=== PATIENT | male | born 1950 | race African-American/Black ===

== ENCOUNTER 2016-05-30 08:58 | Inpatient (IN) | payer MEDICARE ==
[2016-05-30] VITALS (7 sets, daily range): BP systolic 125–140; BP diastolic 59–82
[~2016-05-30] VITALS: Ht 167.6 cm; Wt 113.9 kg
[~2016-05-30 08:58] MED LIST: ALBU2.5V13; ALLO100T PO; AMLO5TAB88 PO; COR6 PO; DIGO125T82 PO; FAMO20TA8 PO; FLUT1DIS3; FURO40TA5 PO; LISI-604 PO; RIVA20TA PO; SITA100T6 PO; SPIR25TA4 PO
[2016-05-30] MEDS ORDERED: IPRATROPIUM BROMIDE (0.02%) 0.5MG/2.5ML NEB HHN STA (09:34)
[2016-05-30] MEDS ORDERED: ALBUTEROL (0.083%) 2.5MG/3ML NEB HHN STA (09:34)
[2016-05-30] MEDS ORDERED: FUROSEMIDE 40MG/4ML VIAL IVP ONE (09:45)
[2016-05-30 09:57] LABS: HEMOGLOBIN. 11.4 g/dL (14.0-18.0); MEAN CORPUSCULAR HEMOGLOBIN 29.4 pg (28.0-32.0); MEAN CORPUSCULAR HGB CONC 31.6 g/dL (31.0-37.0); MEAN CORPUSCULAR VOLUME 92.8 fL (80.0-94.0); MEAN PLATELET VOLUME 10.3 fl (7.4-10.4); PLATELET 145 x1000/uL (130-400); RED BLOOD CELL COUNT 3.87 mill/uL (4.7-6.1); RED CELL DISTRIBUTION WIDTH 16.5 % (11.6-14.6); WHITE BLOOD COUNT 6.2 x1000/uL (4.5-11.0)
[2016-05-30 09:58] LABS: DIFFERENTIAL COMMENT 1
[2016-05-30 10:00] LABS: CLARITY URINE CLEAR (CLEAR); COLOR URINE YELLOW (YELLOW); GLUCOSE URINE NEGATIVE (NEGATIVE); KETONES URINE NEGATIVE (NEGATIVE); LEUKOCYTE ESTERASE URINE NEGATIVE (NEGATIVE); NITRITE URINE NEGATIVE (NEGATIVE); OCCULT BLOOD URINE 1+ (NEGATIVE); PH URINE 5.5 (4.5-8.0); PROTEIN URINE 3+ (NEGATIVE); SPECIFIC GRAVITY URINE 1.014 (1.005-1.030); UROBILINOGEN URINE 0.2 E.U./dL (0.2-1.0)
[2016-05-30 10:11] LABS: SQUAMOUS EPITHELIAL CELL URINE RARE /lpf (RARE/1+)
[2016-05-30 10:12] LABS: BACTERIA URINE TRACE; MUCUS URINE TRACE /lpf (NONE/TRACE); RBC URINE 0-2 /hpf (0-2); WBC URINE 0-2 /hpf (0-2)
[2016-05-30 10:16] LABS: ALANINE AMINOTRANSFERASE 11 IU/L (13-61); ALBUMIN 3.4 g/dL (3.4-5.0); ANION GAP 14; CALCIUM 8.7 mg/dL (8.5-10.1); CARBON DIOXIDE 30 mEq/L (21-32); CHLORIDE 104 mEq/L (98-107); INDEX HEMOLYSI 1 (1-3); INDEX ICTERIC 1 (1-4); INDEX LIPEMIC 1 (1-3); NT PRO B-TYPE NATRIURETIC PEP 11368 pg/mL (5-125); UREA NITROGEN BLOOD 49 mg/dL (7-21); eGFR 25 mL/min (>60)
[2016-05-30 10:29] LABS: DIGOXIN 1.5 ng/mL (0.9-2.0)
[2016-05-30] MEDS ORDERED: ASPIRIN 81MG TABLET PO ONE (10:30)
[2016-05-30 10:44] LABS: ANISOCYTOSIS 1+; PLATELET ESTIMATE NORMAL
[2016-05-30 10:54] LABS: INR 1.2; PARTIAL THROMBOPLASTIN TIME 30.2 sec (24.0-34.0); PROTHROMBIN TIME 12.2 sec
[2016-05-30] MEDS ORDERED: DOCUSATE SODIUM 100MG CAPSULE PO PRN (11:15)
[2016-05-30] MEDS ORDERED: ONDANSETRON HCL 4MG/2ML VIAL IV PRN (11:15)
[2016-05-30] MEDS ORDERED: ACETAMINOPHEN 325MG TABLET PO PRN (11:15)
[2016-05-30] MEDS ORDERED: IPRATROPIUM/ALBUTEROL 0.5-3(2.5)MG/3ML NEB INH PRN (11:15)
[2016-05-30] MEDS ORDERED: DEXTROSE 50% WATER 50ML SYRINGE IV PRN (13:30)
[2016-05-30] MEDS: OMEPRAZOLE 20MG CAPSULE EXTENDED RELEASE PO SCH (13:54)
[2016-05-30] MEDS: RIVAROXABAN 15 MG TABLET PO SCH (16:28)
[2016-05-30] MEDS: BLOOD SUGAR DIAGNOSTIC STRIP TEST SCH ×2 (16:45→20:45)
[2016-05-30] MEDS ORDERED: LISINOPRIL 20MG TABLET PO SCH (17:00)
[2016-05-30] MEDS: INSULIN LISPRO 100 UNITS/ML SUBCUT SCH ×2 (17:19→20:46)
[2016-05-30] MEDS ORDERED: RIVAROXABAN 20 MG TABLET PO SCH (18:00)
[2016-05-30] MEDS: METHYLPREDNISOLONE SOD SUCC 40 MG/ML VIAL IV SCH (20:28)
[2016-05-30] MEDS: CARVEDILOL 6.25 MG TABLET PO SCH (20:28)
[2016-05-30] MEDS: LISINOPRIL 10MG TABLET PO SCH (20:28)
[2016-05-30] MEDS ORDERED: ZOLPIDEM TARTRATE 5MG TABLET PO PRN (21:00)
[2016-05-31] VITALS (12 sets, daily range): BP systolic 109–140; BP diastolic 53–97
[2016-05-31] MEDS: IPRATROPIUM/ALBUTEROL 0.5-3(2.5)MG/3ML NEB HHN SCH ×3 (00:14→13:30)
[2016-05-31] MEDS: OMEPRAZOLE 20MG CAPSULE EXTENDED RELEASE PO SCH ×2 (06:34→08:50)
[2016-05-31 06:57] LABS: BASOPHILS % 0.5 % (0.0-2.0); EOSINOPHILS % 0.4 % (0.0-5.0); HEMATOCRIT. 34.9 % (42.0-52.0); HEMOGLOBIN. 11.1 g/dL (14.0-18.0); LYMPHOCYTES % 11.4 % (20.0-50.0); MEAN CORPUSCULAR HEMOGLOBIN 29.5 pg (28.0-32.0); MEAN CORPUSCULAR HGB CONC 31.8 g/dL (31.0-37.0); MEAN CORPUSCULAR VOLUME 92.6 fL (80.0-94.0); MEAN PLATELET VOLUME 10.3 fl (7.4-10.4); MONOCYTES % 2.3 % (2.0-8.0); NEUTROPHILS % 85.4 % (40.0-76.0); PLATELET 138 x1000/uL (130-400); RED BLOOD CELL COUNT 3.76 mill/uL (4.7-6.1); RED CELL DISTRIBUTION WIDTH 16.2 % (11.6-14.6); WHITE BLOOD COUNT 5.8 x1000/uL (4.5-11.0)
[2016-05-31] MEDS: INSULIN LISPRO 100 UNITS/ML SUBCUT SCH ×4 (08:00→21:00)
[2016-05-31 08:07] LABS: CALCIUM 8.6 mg/dL (8.5-10.1); DIGOXIN 1.3 ng/mL (0.9-2.0); MAGNESIUM 1.9 mg/dL (1.8-2.4)
[2016-05-31] MEDS: BLOOD SUGAR DIAGNOSTIC STRIP TEST SCH ×4 (08:25→21:18)
[2016-05-31] MEDS: BUDESONIDE 0.5MG/2ML NEB HHN SCH (08:25)
[2016-05-31] MEDS: ALLOPURINOL 100 MG TABLET PO SCH (08:47)
[2016-05-31] MEDS: METHYLPREDNISOLONE SOD SUCC 40 MG/ML VIAL IV SCH (08:47)
[2016-05-31] MEDS: DIGOXIN 125MCG TABLET PO SCH (08:47)
[2016-05-31] MEDS: CARVEDILOL 6.25 MG TABLET PO SCH ×2 (08:49→21:18)
[2016-05-31] MEDS: LISINOPRIL 10MG TABLET PO SCH ×2 (08:49→21:17)
[2016-05-31] MEDS ORDERED: SPIRONOLACTONE 25MG TABLET PO SCH (09:00)
[2016-05-31] MEDS ORDERED: CARVEDILOL 6.25 MG TABLET PO SCH (09:00)
[2016-05-31] MEDS ORDERED: FUROSEMIDE 40MG/4ML VIAL IV SCH (09:00)
[2016-05-31] MEDS: RIVAROXABAN 15 MG TABLET PO SCH (18:39)
[2016-05-31] MEDS: FUROSEMIDE 40MG/4ML VIAL IV SCH (18:39)
[2016-06-01] VITALS (11 sets, daily range): BP systolic 92–140; BP diastolic 24–102
[2016-06-01] MEDS: BUDESONIDE 0.5MG/2ML NEB HHN SCH ×3 (02:28→21:14)
[2016-06-01] MEDS: IPRATROPIUM/ALBUTEROL 0.5-3(2.5)MG/3ML NEB HHN SCH ×5 (02:28→21:15)
[2016-06-01] MEDS: FUROSEMIDE 40MG/4ML VIAL IV SCH ×2 (06:19→16:34)
[2016-06-01 06:56] LABS: BASOPHILS % 0.2 % (0.0-2.0); EOSINOPHILS % 0.1 % (0.0-5.0); HEMOGLOBIN. 10.2 g/dL (14.0-18.0); MEAN CORPUSCULAR HGB CONC 31.8 g/dL (31.0-37.0); MEAN PLATELET VOLUME 10.4 fl (7.4-10.4); MONOCYTES % 6.6 % (2.0-8.0); NEUTROPHILS % 84.1 % (40.0-76.0); PLATELET 138 x1000/uL (130-400); RED BLOOD CELL COUNT 3.51 mill/uL (4.7-6.1); RED CELL DISTRIBUTION WIDTH 16.1 % (11.6-14.6); WHITE BLOOD COUNT 11.1 x1000/uL (4.5-11.0)
[2016-06-01] MEDS: BLOOD SUGAR DIAGNOSTIC STRIP TEST SCH ×4 (07:55→20:49)
[2016-06-01] MEDS: INSULIN LISPRO 100 UNITS/ML SUBCUT SCH ×4 (07:56→20:52)
[2016-06-01] MEDS: ALLOPURINOL 100 MG TABLET PO SCH (08:01)
[2016-06-01] MEDS: CARVEDILOL 6.25 MG TABLET PO SCH ×2 (08:02→20:49)
[2016-06-01] MEDS: FAMOTIDINE 20MG TABLET PO SCH (08:02)
[2016-06-01] MEDS: LISINOPRIL 10MG TABLET PO SCH ×2 (08:02→20:49)
[2016-06-01] MEDS: DIGOXIN 125MCG TABLET PO SCH (08:02)
[2016-06-01 09:28] LABS: MAGNESIUM 1.8 mg/dL (1.8-2.4)
[2016-06-01 11:05] LABS: CREATININE URINE (RAW) 65.1 mg/dl; CREATININE URINE 24 HR 846.3 mg/24hr (800-2000)
[2016-06-01] MEDS: RIVAROXABAN 15 MG TABLET PO SCH (16:34)
[2016-06-02] VITALS (12 sets, daily range): BP systolic 108–151; BP diastolic 61–96
[2016-06-02] MEDS: IPRATROPIUM/ALBUTEROL 0.5-3(2.5)MG/3ML NEB HHN SCH ×4 (01:59→20:14)
[2016-06-02] MEDS: FUROSEMIDE 40MG/4ML VIAL IV SCH ×2 (06:36→18:42)
[2016-06-02 07:06] LABS: BASOPHILS % 0.9 % (0.0-2.0); EOSINOPHILS % 5.3 % (0.0-5.0); HEMOGLOBIN. 11.2 g/dL (14.0-18.0); LYMPHOCYTES % 21.5 % (20.0-50.0); MEAN CORPUSCULAR HEMOGLOBIN 29.2 pg (28.0-32.0); MEAN CORPUSCULAR HGB CONC 31.9 g/dL (31.0-37.0); MEAN CORPUSCULAR VOLUME 91.7 fL (80.0-94.0); MEAN PLATELET VOLUME 10.2 fl (7.4-10.4); NEUTROPHILS % 62.3 % (40.0-76.0); PLATELET 139 x1000/uL (130-400); RED BLOOD CELL COUNT 3.82 mill/uL (4.7-6.1); RED CELL DISTRIBUTION WIDTH 16.1 % (11.6-14.6); WHITE BLOOD COUNT 9.3 x1000/uL (4.5-11.0)
[2016-06-02 07:45] LABS: CALCIUM 8.2 mg/dL (8.5-10.1)
[2016-06-02] MEDS: INSULIN LISPRO 100 UNITS/ML SUBCUT SCH ×4 (07:49→21:00)
[2016-06-02] MEDS: BLOOD SUGAR DIAGNOSTIC STRIP TEST SCH ×4 (07:49→21:04)
[2016-06-02] MEDS: LISINOPRIL 10MG TABLET PO SCH ×2 (09:11→21:04)
[2016-06-02] MEDS: FAMOTIDINE 20MG TABLET PO SCH (09:11)
[2016-06-02] MEDS: ALLOPURINOL 100 MG TABLET PO SCH (09:11)
[2016-06-02] MEDS: DIGOXIN 125MCG TABLET PO SCH (09:11)
[2016-06-02] MEDS: CARVEDILOL 6.25 MG TABLET PO SCH ×2 (09:11→21:04)
[2016-06-02] MEDS: BUDESONIDE 0.5MG/2ML NEB HHN SCH ×2 (11:32→20:14)
[2016-06-02] MEDS: RIVAROXABAN 15 MG TABLET PO SCH (18:42)
[2016-06-03] VITALS (12 sets, daily range): BP systolic 114–136; BP diastolic 57–110
[2016-06-03] MEDS: IPRATROPIUM/ALBUTEROL 0.5-3(2.5)MG/3ML NEB HHN SCH ×4 (02:25→19:50)
[2016-06-03] MEDS: FUROSEMIDE 40MG/4ML VIAL IV SCH ×2 (06:21→18:19)
[2016-06-03 06:32] LABS: BASOPHILS % 0.9 % (0.0-2.0); EOSINOPHILS % 12.5 % (0.0-5.0); HEMATOCRIT. 32.9 % (42.0-52.0); HEMOGLOBIN. 10.5 g/dL (14.0-18.0); LYMPHOCYTES % 23.2 % (20.0-50.0); MEAN CORPUSCULAR HEMOGLOBIN 29.3 pg (28.0-32.0); MEAN CORPUSCULAR HGB CONC 31.9 g/dL (31.0-37.0); MEAN CORPUSCULAR VOLUME 91.9 fL (80.0-94.0); MONOCYTES % 12.3 % (2.0-8.0); NEUTROPHILS % 51.1 % (40.0-76.0); PLATELET 141 x1000/uL (130-400); RED BLOOD CELL COUNT 3.58 mill/uL (4.7-6.1); RED CELL DISTRIBUTION WIDTH 16.3 % (11.6-14.6); WHITE BLOOD COUNT 7.3 x1000/uL (4.5-11.0)
[2016-06-03 06:38] LABS: CALCIUM 8.1 mg/dL (8.5-10.1)
[2016-06-03] MEDS: INSULIN LISPRO 100 UNITS/ML SUBCUT SCH ×4 (08:00→21:00)
[2016-06-03] MEDS: LISINOPRIL 10MG TABLET PO SCH ×2 (08:41→21:26)
[2016-06-03] MEDS: FAMOTIDINE 20MG TABLET PO SCH (08:41)
[2016-06-03] MEDS: DIGOXIN 125MCG TABLET PO SCH (08:42)
[2016-06-03] MEDS: ALLOPURINOL 100 MG TABLET PO SCH (08:42)
[2016-06-03] MEDS: CARVEDILOL 6.25 MG TABLET PO SCH ×2 (08:42→21:00)
[2016-06-03] MEDS: BLOOD SUGAR DIAGNOSTIC STRIP TEST SCH ×4 (08:45→21:00)
[2016-06-03] MEDS: BUDESONIDE 0.5MG/2ML NEB HHN SCH (10:14)
[2016-06-03] MEDS: RIVAROXABAN 15 MG TABLET PO SCH (18:19)
[2016-06-04] VITALS (12 sets, daily range): BP systolic 113–167; BP diastolic 64–122
[2016-06-04] MEDS: IPRATROPIUM/ALBUTEROL 0.5-3(2.5)MG/3ML NEB HHN SCH ×4 (01:14→21:38)
[2016-06-04 05:55] LABS: CALCIUM 8.4 mg/dL (8.5-10.1)
[2016-06-04 05:56] LABS: HEMATOCRIT. 34.5 % (42.0-52.0); HEMOGLOBIN. 10.9 g/dL (14.0-18.0); MEAN CORPUSCULAR HEMOGLOBIN 29.2 pg (28.0-32.0); MEAN CORPUSCULAR HGB CONC 31.6 g/dL (31.0-37.0); MEAN CORPUSCULAR VOLUME 92.4 fL (80.0-94.0); PLATELET 148 x1000/uL (130-400); RED BLOOD CELL COUNT 3.74 mill/uL (4.7-6.1); RED CELL DISTRIBUTION WIDTH 15.8 % (11.6-14.6); WHITE BLOOD COUNT 8.4 x1000/uL (4.5-11.0)
[2016-06-04] MEDS: FUROSEMIDE 40MG/4ML VIAL IV SCH ×2 (06:30→16:18)
[2016-06-04 06:51] LABS: DIFFERENTIAL COMMENT 1
[2016-06-04] MEDS: BLOOD SUGAR DIAGNOSTIC STRIP TEST SCH ×4 (07:30→21:00)
[2016-06-04] MEDS: INSULIN LISPRO 100 UNITS/ML SUBCUT SCH ×4 (08:00→21:00)
[2016-06-04] MEDS: ALLOPURINOL 100 MG TABLET PO SCH (08:55)
[2016-06-04] MEDS: DIGOXIN 125MCG TABLET PO SCH (08:55)
[2016-06-04] MEDS: LISINOPRIL 10MG TABLET PO SCH ×2 (08:56→21:02)
[2016-06-04] MEDS: FAMOTIDINE 20MG TABLET PO SCH (08:56)
[2016-06-04] MEDS: CARVEDILOL 6.25 MG TABLET PO SCH ×2 (08:56→21:02)
[2016-06-04] MEDS: RIVAROXABAN 15 MG TABLET PO SCH (16:18)
[2016-06-04 17:33] LABS: PLATELET ESTIMATE NORMAL
[2016-06-04 17:34] LABS: ANISOCYTOSIS 1+; HYPOCHROMASIA 1+
[2016-06-05] VITALS (7 sets, daily range): BP systolic 116–151; BP diastolic 73–81
[2016-06-05] MEDS: IPRATROPIUM/ALBUTEROL 0.5-3(2.5)MG/3ML NEB HHN SCH ×2 (01:25→08:33)
[2016-06-05 06:43] LABS: CALCIUM 8.4 mg/dL (8.5-10.1); MAGNESIUM 1.9 mg/dL (1.8-2.4); PHOSPHORUS 3.7 mg/dL (2.5-4.9)
[2016-06-05 06:59] LABS: BASOPHILS % 0.8 % (0.0-2.0); EOSINOPHILS % 13.2 % (0.0-5.0); HEMATOCRIT. 33.4 % (42.0-52.0); HEMOGLOBIN. 10.9 g/dL (14.0-18.0); MEAN CORPUSCULAR HEMOGLOBIN 29.6 pg (28.0-32.0); MEAN CORPUSCULAR HGB CONC 32.5 g/dL (31.0-37.0); MEAN CORPUSCULAR VOLUME 91.3 fL (80.0-94.0); MEAN PLATELET VOLUME 10.4 fl (7.4-10.4); MONOCYTES % 11.4 % (2.0-8.0); NEUTROPHILS % 54.6 % (40.0-76.0); PLATELET 147 x1000/uL (130-400); RED BLOOD CELL COUNT 3.66 mill/uL (4.7-6.1); RED CELL DISTRIBUTION WIDTH 16.3 % (11.6-14.6); WHITE BLOOD COUNT 7.2 x1000/uL (4.5-11.0)
[2016-06-05] MEDS: BLOOD SUGAR DIAGNOSTIC STRIP TEST SCH ×2 (07:30→12:30)
[2016-06-05] MEDS: FUROSEMIDE 40MG/4ML VIAL IV SCH (07:38)
[2016-06-05] MEDS: INSULIN LISPRO 100 UNITS/ML SUBCUT SCH ×2 (08:00→13:00)
[2016-06-05] MEDS: DIGOXIN 125MCG TABLET PO SCH (09:00)
[2016-06-05] MEDS: CARVEDILOL 6.25 MG TABLET PO SCH (09:00)
[2016-06-05] MEDS: FAMOTIDINE 20MG TABLET PO SCH (09:32)
[2016-06-05] MEDS: ALLOPURINOL 100 MG TABLET PO SCH (09:34)
[2016-06-05] MEDS: LISINOPRIL 10MG TABLET PO SCH (09:35)
== END 2016-06-05 01:00 | disposition home or self-care (01) | DRG 291 ==
LOC: ER 10:05 → 5EST 10:57
PROVIDERS: ADMIT Family Medicine Adult Medicine; ATTEND Family Medicine Adult Medicine
DX: I13.0 Hypertensive heart and chronic kidney disease with heart failure and stage 1 through stage 4 chronic kidney disease, or unspecified chronic kidney disease (principal); J96.00 Acute respiratory failure, unspecified whether with hypoxia or hypercapnia; I50.43 Acute on chronic combined systolic (congestive) and diastolic (congestive) heart failure; J44.1 Chronic obstructive pulmonary disease with (acute) exacerbation; N17.9 Acute kidney failure, unspecified; Z68.41 Body mass index [BMI] 40.0-44.9, adult; I42.9 Cardiomyopathy, unspecified; N18.9 Chronic kidney disease, unspecified; E66.9 Obesity, unspecified; Z99.81 Dependence on supplemental oxygen; E11.22 Type 2 diabetes mellitus with diabetic chronic kidney disease; I25.10 Atherosclerotic heart disease of native coronary artery without angina pectoris; I27.2 Other secondary pulmonary hypertension; I27.81 Cor pulmonale (chronic); I34.0 Nonrheumatic mitral (valve) insufficiency; I48.2 Chronic atrial fibrillation; D64.9 Anemia, unspecified; M10.9 Gout, unspecified; Z79.01 Long term (current) use of anticoagulants; Z82.49 Family history of ischemic heart disease and other diseases of the circulatory system; Z86.73 Personal history of transient ischemic attack (TIA), and cerebral infarction without residual deficits; Z95.5 Presence of coronary angioplasty implant and graft; Z95.810 Presence of automatic (implantable) cardiac defibrillator; Z79.899 Other long term (current) drug therapy; Z28.21 Immunization not carried out because of patient refusal
CPT/HCPCS: 36415; 71010; 80048; 80053; 80162; 81001; 82570; 82962; 83605; 83735; 83880; 83970; 84100; 84484; 85025; 85610; 85730; 87040; 87086; 93005; 94640; 94664; 96374; 97110; 97116; 97162; 97166; 97530; 99291; J1815; J1940; J2920; J7611; J7620; J7626

== ENCOUNTER 2016-08-30 11:20 | Emergency (ER) | payer MEDICARE ==
[~2016-08-30] VITALS: Ht 175.3 cm; Wt 106.0 kg
[~2016-08-30 11:20] MED LIST changes: -AMLO5TAB88 PO; -FAMO20TA8 PO; -SITA100T6 PO
[2016-08-30 11:52] LABS: HEMATOCRIT. 32.9 % (42.0-52.0); HEMOGLOBIN. 10.7 g/dL (14.0-18.0); MEAN CORPUSCULAR VOLUME 92.1 fL (80.0-94.0); MEAN PLATELET VOLUME 9.7 fl (7.4-10.4); PLATELET 112 x1000/uL (130-400); RED BLOOD CELL COUNT 3.58 mill/uL (4.7-6.1); RED CELL DISTRIBUTION WIDTH 17.1 % (11.6-14.6)
[2016-08-30 12:12] LABS: PLATELET ESTIMATE DECREASED
[2016-08-30 12:17] LABS: TROPONIN I 0.83 ng/mL (0.00-0.04)
[2016-08-30 12:23] LABS: DIGOXIN 1.2 ng/mL (0.9-2.0)
[2016-08-30 12:36] LABS: INR 1.2; PROTHROMBIN TIME 12.7 sec
[2016-08-30 13:30] LABS: *AMPHETAMINES SCREEN URINE NEGATIVE (NEGATIVE); *BARBITURATES SCREEN URINE NEGATIVE (NEGATIVE); *BENZODIAZEPINES SCREEN URINE NEGATIVE (NEGATIVE); *COCAINE SCREEN URINE NEGATIVE (NEGATIVE); CANNABINOID URINE SCREEN NEGATIVE (NEGATIVE); METHADONE URINE SCREEN NEGATIVE (NEGATIVE); OPIATES URINE SCREEN NEGATIVE (NEGATIVE); PHENCYCLIDINE URINE SCREEN NEGATIVE (NEGATIVE)
[2016-08-30 14:32] VITALS: BP 117/75
== END 2016-08-30 14:48 | disposition home or self-care (01) ==
LOC: ER 11:55
DX: N18.9 Chronic kidney disease, unspecified (principal); I50.9 Heart failure, unspecified; R31.9 Hematuria, unspecified; R79.89 Other specified abnormal findings of blood chemistry; J44.9 Chronic obstructive pulmonary disease, unspecified; M79.89 Other specified soft tissue disorders; I48.91 Unspecified atrial fibrillation; Z86.73 Personal history of transient ischemic attack (TIA), and cerebral infarction without residual deficits; Z79.01 Long term (current) use of anticoagulants
CPT/HCPCS: 36415; 71010; 80048; 80162; 80305; 83880; 84484; 85025; 85610; 93005; 99285

== ENCOUNTER 2016-09-20 16:18 | Inpatient (IN) | payer MEDICARE ==
[~2016-09-20] VITALS: Ht 170.2 cm; Wt 118.4 kg
[2016-09-20] MEDS ORDERED: IPRATROPIUM BROMIDE (0.02%) 0.5MG/2.5ML NEB HHN STA (17:41)
[2016-09-20] MEDS ORDERED: ALBUTEROL (0.083%) 2.5MG/3ML NEB HHN STA (17:41)
[2016-09-20] MEDS ORDERED: METHYLPREDNISOLONE SOD SUCC 125 MG/2 ML VIAL IV STA (17:41)
[2016-09-20] MEDS ORDERED: NITROGLYCERIN OINT 1GM/INCH UDPKT TD STA (17:41)
[2016-09-20] MEDS ORDERED: FUROSEMIDE 40MG/4ML VIAL IV STA (17:41)
[2016-09-20 18:35] LABS: CHLORIDE 107 mEq/L (98-107); INR 1.2; PROTHROMBIN TIME 12.2 sec
[2016-09-20 18:36] LABS: CARBON DIOXIDE 25 mEq/L (21-32)
[2016-09-20 18:38] LABS: BASOPHILS % 1.3 % (0.0-2.0); EOSINOPHILS % 11.9 % (0.0-5.0); HEMATOCRIT. 33.1 % (42.0-52.0); HEMOGLOBIN. 10.7 g/dL (14.0-18.0); LYMPHOCYTES % 16.8 % (20.0-50.0); MEAN CORPUSCULAR VOLUME 93.3 fL (80.0-94.0); MEAN PLATELET VOLUME 9.9 fl (7.4-10.4); MONOCYTES % 10.7 % (2.0-8.0); NEUTROPHILS % 59.3 % (40.0-76.0); PLATELET 130 x1000/uL (130-400); RED BLOOD CELL COUNT 3.55 mill/uL (4.7-6.1); RED CELL DISTRIBUTION WIDTH 17.9 % (11.6-14.6)
[2016-09-20 18:44] LABS: CREATINE KINASE 94 IU/L (39-308)
[2016-09-20] MEDS ORDERED: ASPIRIN 325MG TABLET PO ONE (19:00)
[2016-09-20 21:40] VITALS: BP 115/76
[2016-09-20] MEDS ORDERED: ACETAMINOPHEN 325MG TABLET PO PRN (23:00)
[2016-09-20] MEDS ORDERED: DEXTROSE 50% WATER 50ML SYRINGE IV PRN (23:00)
[2016-09-21] VITALS: BP 128/87
[2016-09-21] MEDS: IPRATROPIUM/ALBUTEROL 0.5-3(2.5)MG/3ML NEB HHN SCH ×6 (01:32→20:43)
[2016-09-21 04:57] VITALS: BP 132/79
[2016-09-21 06:39] LABS: BASOPHILS % 0.4 % (0.0-2.0); EOSINOPHILS % 0.2 % (0.0-5.0); HEMATOCRIT. 32.6 % (42.0-52.0); HEMOGLOBIN. 10.5 g/dL (14.0-18.0); MEAN PLATELET VOLUME 10.1 fl (7.4-10.4); MONOCYTES % 0.9 % (2.0-8.0); NEUTROPHILS % 87.5 % (40.0-76.0); PLATELET 121 x1000/uL (130-400); RED CELL DISTRIBUTION WIDTH 17.4 % (11.6-14.6)
[2016-09-21] MEDS: BLOOD SUGAR DIAGNOSTIC STRIP TEST SCH ×4 (07:20→21:00)
[2016-09-21] MEDS: INSULIN LISPRO 100 UNITS/ML SUBCUT SCH ×4 (07:50→21:00)
[2016-09-21 08:00] VITALS: BP 117/79
[2016-09-21 08:02] LABS: TROPONIN I 0.93 ng/mL (0.00-0.04)
[2016-09-21] MEDS: LISINOPRIL 20MG TABLET PO SCH ×2 (08:45→17:33)
[2016-09-21] MEDS: ALLOPURINOL 100 MG TABLET PO SCH (08:45)
[2016-09-21] MEDS: FUROSEMIDE 40MG/4ML VIAL IVP SCH ×2 (08:45→22:00)
[2016-09-21] MEDS: SPIRONOLACTONE 25MG TABLET PO SCH (08:45)
[2016-09-21] MEDS: DIGOXIN 125MCG TABLET PO SCH (08:45)
[2016-09-21] MEDS: CARVEDILOL 12.5MG TABLET PO SCH ×2 (08:46→21:00)
[2016-09-21] MEDS ORDERED: CARVEDILOL 6.25 MG TABLET PO SCH (09:00)
[2016-09-21 12:00] VITALS: BP 94/62
[2016-09-21 16:00] VITALS: BP 106/54
[2016-09-21] MEDS: RIVAROXABAN 15 MG TABLET PO SCH (17:32)
[2016-09-21 20:28] VITALS: BP 98/58
[2016-09-22] VITALS: BP 119/71
[2016-09-22] MEDS: IPRATROPIUM/ALBUTEROL 0.5-3(2.5)MG/3ML NEB HHN SCH ×6 (00:29→20:26)
[2016-09-22 04:00] VITALS: BP 113/73
[2016-09-22 07:09] LABS: BASOPHILS % 0.4 % (0.0-2.0); EOSINOPHILS % 1.5 % (0.0-5.0); HEMATOCRIT. 31.3 % (42.0-52.0); HEMOGLOBIN. 10.2 g/dL (14.0-18.0); LYMPHOCYTES % 13.4 % (20.0-50.0); MEAN CORPUSCULAR HEMOGLOBIN 30.1 pg (28.0-32.0); MEAN CORPUSCULAR VOLUME 92.3 fL (80.0-94.0); MEAN PLATELET VOLUME 9.7 fl (7.4-10.4); MONOCYTES % 10.2 % (2.0-8.0); NEUTROPHILS % 74.5 % (40.0-76.0); PLATELET 129 x1000/uL (130-400); RED BLOOD CELL COUNT 3.39 mill/uL (4.7-6.1); RED CELL DISTRIBUTION WIDTH 17.3 % (11.6-14.6)
[2016-09-22] MEDS: BLOOD SUGAR DIAGNOSTIC STRIP TEST SCH ×4 (07:20→20:46)
[2016-09-22] MEDS: INSULIN LISPRO 100 UNITS/ML SUBCUT SCH ×4 (07:50→20:47)
[2016-09-22 07:52] VITALS: BP 119/73
[2016-09-22 08:25] LABS: CARBON DIOXIDE 22 mEq/L (21-32); CHLORIDE 103 mEq/L (98-107)
[2016-09-22] MEDS: FUROSEMIDE 40MG/4ML VIAL IVP SCH ×2 (08:26→20:46)
[2016-09-22] MEDS: ALLOPURINOL 100 MG TABLET PO SCH (08:26)
[2016-09-22] MEDS: DIGOXIN 125MCG TABLET PO SCH (08:26)
[2016-09-22] MEDS: SPIRONOLACTONE 25MG TABLET PO SCH (08:26)
[2016-09-22] MEDS: CARVEDILOL 12.5MG TABLET PO SCH ×2 (08:27→20:46)
[2016-09-22] MEDS: LISINOPRIL 20MG TABLET PO SCH ×2 (08:27→17:14)
[2016-09-22 08:56] LABS: TROPONIN I 0.84 ng/mL (0.00-0.04)
[2016-09-22] MEDS ORDERED: SODIUM POLYSTYRENE SULFONATE 15 G/60 ML BOT PO SCH (10:00)
[2016-09-22 11:09] LABS: BG CARBOXYHEMOGLOBIN 0.1 % (0.5-1.5); BG DEOXYHEMOGLOBIN 2.9 % (0.0-5.0); BG FRACTION INSPIRED OXYGEN 28; BG HCO3 ACT 20.6 mmol/L (22.0-26.0); BG OXYGEN SATURATION 97.1 % (92.0-98.5); BG PCO2 40.3 mmHg (35.0-45.0); BG PH 7.327 (7.350-7.450); BG PO2 106.5 mmHg (75.0-100.0); BG SAMPLE SITE RIGHT RADIAL; BG TOTAL HEMOGLOBIN 11.5 g/dL (12.0-18.0); BG VENT MODE NASAL CANNULA
[2016-09-22 11:53] VITALS: BP 121/76
[2016-09-22] MEDS ORDERED: CALCITRIOL 0.25MCG CAPSULE PO SCH (13:00)
[2016-09-22 16:00] VITALS: BP 159/63
[2016-09-22 16:18] LABS: CLARITY URINE CLEAR (CLEAR); COLOR URINE YELLOW (YELLOW); GLUCOSE URINE NEGATIVE (NEGATIVE); KETONES URINE NEGATIVE (NEGATIVE); LEUKOCYTE ESTERASE URINE NEGATIVE (NEGATIVE); NITRITE URINE NEGATIVE (NEGATIVE); OCCULT BLOOD URINE TRACE (NEGATIVE); PROTEIN URINE TRACE (NEGATIVE); SPECIFIC GRAVITY URINE 1.008 (1.005-1.030); UROBILINOGEN URINE 0.2 E.U./dL (0.2-1.0)
[2016-09-22] MEDS: RIVAROXABAN 15 MG TABLET PO SCH (17:14)
[2016-09-22 20:19] VITALS: BP 117/72
[2016-09-23] VITALS: BP 107/76
[2016-09-23] MEDS: IPRATROPIUM/ALBUTEROL 0.5-3(2.5)MG/3ML NEB HHN SCH ×6 (00:20→20:36)
[2016-09-23 04:00] VITALS: BP 101/62
[2016-09-23 07:13] LABS: BASOPHILS % 1.2 % (0.0-2.0); HEMATOCRIT. 31.4 % (42.0-52.0); HEMOGLOBIN. 10.2 g/dL (14.0-18.0); LYMPHOCYTES % 19.9 % (20.0-50.0); MEAN CORPUSCULAR VOLUME 92.3 fL (80.0-94.0); MEAN PLATELET VOLUME 10.1 fl (7.4-10.4); MONOCYTES % 10.5 % (2.0-8.0); NEUTROPHILS % 59.4 % (40.0-76.0); PLATELET 132 x1000/uL (130-400); RED CELL DISTRIBUTION WIDTH 17.3 % (11.6-14.6)
[2016-09-23] MEDS: BLOOD SUGAR DIAGNOSTIC STRIP TEST SCH ×4 (07:31→21:36)
[2016-09-23] MEDS: INSULIN LISPRO 100 UNITS/ML SUBCUT SCH ×4 (07:40→21:00)
[2016-09-23 08:00] VITALS: BP 129/89
[2016-09-23 08:27] LABS: PHOSPHORUS 4.3 mg/dL (2.5-4.9)
[2016-09-23] MEDS: FUROSEMIDE 40MG/4ML VIAL IVP SCH ×2 (08:36→21:36)
[2016-09-23] MEDS: SPIRONOLACTONE 25MG TABLET PO SCH (08:36)
[2016-09-23] MEDS: DIGOXIN 125MCG TABLET PO SCH (08:37)
[2016-09-23] MEDS: LISINOPRIL 20MG TABLET PO SCH ×2 (08:37→17:18)
[2016-09-23] MEDS: ALLOPURINOL 100 MG TABLET PO SCH (08:37)
[2016-09-23] MEDS: CALCITRIOL 0.25MCG CAPSULE PO SCH (08:37)
[2016-09-23] MEDS: CARVEDILOL 12.5MG TABLET PO SCH ×2 (08:37→21:35)
[2016-09-23 12:00] VITALS: BP 139/86
[2016-09-23 16:00] VITALS: BP 147/98
[2016-09-23] MEDS: RIVAROXABAN 15 MG TABLET PO SCH (17:17)
[2016-09-23 20:00] VITALS: BP 116/61
[2016-09-24] VITALS: BP 116/73
[2016-09-24] MEDS: IPRATROPIUM/ALBUTEROL 0.5-3(2.5)MG/3ML NEB HHN SCH ×4 (00:01→12:24)
[2016-09-24 06:35] LABS: BASOPHILS % 1.1 % (0.0-2.0); EOSINOPHILS % 12.3 % (0.0-5.0); HEMATOCRIT. 32.8 % (42.0-52.0); HEMOGLOBIN. 10.6 g/dL (14.0-18.0); LYMPHOCYTES % 18.2 % (20.0-50.0); MEAN CORPUSCULAR HEMOGLOBIN 30.1 pg (28.0-32.0); MEAN CORPUSCULAR VOLUME 92.7 fL (80.0-94.0); MEAN PLATELET VOLUME 10.2 fl (7.4-10.4); MONOCYTES % 13.3 % (2.0-8.0); NEUTROPHILS % 55.1 % (40.0-76.0); PLATELET 122 x1000/uL (130-400); RED BLOOD CELL COUNT 3.54 mill/uL (4.7-6.1); RED CELL DISTRIBUTION WIDTH 17.3 % (11.6-14.6)
[2016-09-24] MEDS: INSULIN LISPRO 100 UNITS/ML SUBCUT SCH ×3 (06:49→17:08)
[2016-09-24] MEDS: BLOOD SUGAR DIAGNOSTIC STRIP TEST SCH ×3 (07:20→16:34)
[2016-09-24 07:30] VITALS: BP 120/74
[2016-09-24] MEDS: FUROSEMIDE 40MG/4ML VIAL IVP SCH (08:49)
[2016-09-24] MEDS: CALCITRIOL 0.25MCG CAPSULE PO SCH (08:50)
[2016-09-24] MEDS: ALLOPURINOL 100 MG TABLET PO SCH (08:50)
[2016-09-24] MEDS: SPIRONOLACTONE 25MG TABLET PO SCH (08:50)
[2016-09-24] MEDS: CARVEDILOL 12.5MG TABLET PO SCH (08:50)
[2016-09-24] MEDS: DIGOXIN 125MCG TABLET PO SCH (08:51)
[2016-09-24] MEDS: LISINOPRIL 20MG TABLET PO SCH ×2 (08:51→16:37)
[2016-09-24 11:29] VITALS: BP 119/79
[2016-09-24] MEDS ORDERED: BUDESONIDE 0.5MG/2ML NEB HHN SCH (14:00)
[2016-09-24] MEDS ORDERED: IPRATROPIUM/ALBUTEROL 0.5-3(2.5)MG/3ML NEB HHN PRN (14:00)
[2016-09-24 15:31] VITALS: BP 123/71
[2016-09-24] MEDS: RIVAROXABAN 15 MG TABLET PO SCH (16:37)
[2016-09-24 17:11] VITALS: BP 123/73
[2016-09-24] MEDS ORDERED: IPRATROPIUM/ALBUTEROL 0.5-3(2.5)MG/3ML NEB HHN SCH (18:00)
== END 2016-09-24 20:00 | disposition home or self-care (01) | DRG 291 ==
LOC: ER 17:37 → 6WST 18:59 → EDBEDREQTM 19:03 → EDBEDREQ 19:03 → ENRESERV 19:50
PROVIDERS: ADMIT Specialist; ATTEND Specialist
DX: I13.2 Hypertensive heart and chronic kidney disease with heart failure and with stage 5 chronic kidney disease, or end stage renal disease (principal); N18.6 End stage renal disease; I50.43 Acute on chronic combined systolic (congestive) and diastolic (congestive) heart failure; J96.20 Acute and chronic respiratory failure, unspecified whether with hypoxia or hypercapnia; J44.1 Chronic obstructive pulmonary disease with (acute) exacerbation; N17.9 Acute kidney failure, unspecified; Z68.41 Body mass index [BMI] 40.0-44.9, adult; D63.8 Anemia in other chronic diseases classified elsewhere; E11.22 Type 2 diabetes mellitus with diabetic chronic kidney disease; I48.2 Chronic atrial fibrillation; I25.5 Ischemic cardiomyopathy; E66.01 Morbid (severe) obesity due to excess calories; E87.5 Hyperkalemia; I25.10 Atherosclerotic heart disease of native coronary artery without angina pectoris; I27.81 Cor pulmonale (chronic); I34.0 Nonrheumatic mitral (valve) insufficiency; I89.0 Lymphedema, not elsewhere classified; M10.9 Gout, unspecified; Z79.01 Long term (current) use of anticoagulants; Z91.19 Patient's noncompliance with other medical treatment and regimen; Z86.73 Personal history of transient ischemic attack (TIA), and cerebral infarction without residual deficits; Z95.810 Presence of automatic (implantable) cardiac defibrillator; Z99.81 Dependence on supplemental oxygen; Z95.5 Presence of coronary angioplasty implant and graft
CPT/HCPCS: 36415; 36600; 71010; 80048; 80053; 81001; 82375; 82550; 82805; 82962; 83605; 83690; 83735; 83880; 83970; 84100; 84153; 84484; 85025; 85379; 85610; 87040; 93005; 93970; 94640; 96374; 96375; 99285; J1940; J2930; J7030; J7611; J7620; J7626

== ENCOUNTER 2016-10-11 15:30 | Inpatient (IN) | payer MEDICARE ==
[~2016-10-11] VITALS: Ht 170.2 cm; Wt 113.9 kg
[2016-10-11] MEDS ORDERED: ACETAMINOPHEN 325MG TABLET PO PRN (17:30)
[2016-10-11] MEDS ORDERED: DEXTROSE 50% WATER 50ML SYRINGE IV PRN (17:30)
[2016-10-11] MEDS ORDERED: IPRATROPIUM/ALBUTEROL 0.5-3(2.5)MG/3ML NEB HHN PRN (17:30)
[2016-10-11] MEDS ORDERED: ONDANSETRON HCL 4MG/2ML VIAL IV PRN (17:30)
[2016-10-11] MEDS ORDERED: MAGNESIUM/ALUMINUM HYDROXIDE/SIMETHICONE 30ML UDC PO PRN (17:30)
[2016-10-11] MEDS ORDERED: DOCUSATE SODIUM 100MG CAPSULE PO PRN (17:30)
[2016-10-11 17:40] VITALS: BP 128/85
[2016-10-11 20:00] VITALS: BP 131/74
[2016-10-11] MEDS: INSULIN LISPRO 100 UNITS/ML SUBCUT SCH (21:00)
[2016-10-11] MEDS: IPRATROPIUM/ALBUTEROL 0.5-3(2.5)MG/3ML NEB HHN SCH (21:13)
[2016-10-11] MEDS: BUDESONIDE 0.5MG/2ML NEB HHN SCH (21:13)
[2016-10-11] MEDS: CARVEDILOL 6.25 MG TABLET PO SCH (21:49)
[2016-10-11] MEDS: BLOOD SUGAR DIAGNOSTIC STRIP TEST SCH (21:55)
[2016-10-12] MEDS: IPRATROPIUM/ALBUTEROL 0.5-3(2.5)MG/3ML NEB HHN SCH ×4 (01:24→20:37)
[2016-10-12 04:00] VITALS: BP 100/64
[2016-10-12] MEDS: BLOOD SUGAR DIAGNOSTIC STRIP TEST SCH ×4 (07:17→20:52)
[2016-10-12 08:00] VITALS: BP 94/61
[2016-10-12 08:01] LABS: BASOPHILS % 1.2 % (0.0-2.0); EOSINOPHILS % 11.3 % (0.0-5.0); HEMATOCRIT. 30.8 % (42.0-52.0); HEMOGLOBIN. 10.3 g/dL (14.0-18.0); LYMPHOCYTES % 24.2 % (20.0-50.0); MEAN CORPUSCULAR HEMOGLOBIN 31.1 pg (28.0-32.0); MEAN CORPUSCULAR VOLUME 92.9 fL (80.0-94.0); MEAN PLATELET VOLUME 11.3 fl (7.4-10.4); MONOCYTES % 13.1 % (2.0-8.0); NEUTROPHILS % 50.2 % (40.0-76.0); PLATELET 67 x1000/uL (130-400); RED BLOOD CELL COUNT 3.31 mill/uL (4.7-6.1); RED CELL DISTRIBUTION WIDTH 16.8 % (11.6-14.6)
[2016-10-12] MEDS: BUDESONIDE 0.5MG/2ML NEB HHN SCH ×2 (08:17→20:37)
[2016-10-12] MEDS: CARVEDILOL 6.25 MG TABLET PO SCH ×2 (08:25→20:51)
[2016-10-12] MEDS: INSULIN LISPRO 100 UNITS/ML SUBCUT SCH ×4 (08:27→20:51)
[2016-10-12] MEDS: FAMOTIDINE 20MG TABLET PO SCH (08:32)
[2016-10-12 08:34] LABS: CARBON DIOXIDE 20 mEq/L (21-32); CHLORIDE 105 mEq/L (98-107); PREALBUMIN 19.5 mg/dL (20.0-40.0)
[2016-10-12] MEDS: LACTULOSE 20G/30ML UDC PO SCH ×3 (09:34→16:42)
[2016-10-12] MEDS: DOCUSATE SODIUM 100MG CAPSULE PO SCH (17:29)
[2016-10-12 20:00] VITALS: BP 108/71
[2016-10-12] MEDS: POLYETHYLENE GLYCOL 3350 (17GM) 1 DOSE PACK PO SCH (20:51)
[2016-10-13] MEDS: IPRATROPIUM/ALBUTEROL 0.5-3(2.5)MG/3ML NEB HHN SCH ×4 (01:27→21:00)
[2016-10-13] MEDS: BLOOD SUGAR DIAGNOSTIC STRIP TEST SCH ×4 (06:23→20:49)
[2016-10-13 07:01] LABS: BASOPHILS % 1.4 % (0.0-2.0); EOSINOPHILS % 10.1 % (0.0-5.0); HEMATOCRIT. 29.7 % (42.0-52.0); HEMOGLOBIN. 9.7 g/dL (14.0-18.0); LYMPHOCYTES % 22.7 % (20.0-50.0); MEAN CORPUSCULAR VOLUME 91.8 fL (80.0-94.0); MEAN PLATELET VOLUME 9.7 fl (7.4-10.4); MONOCYTES % 13.2 % (2.0-8.0); NEUTROPHILS % 52.6 % (40.0-76.0); PLATELET 77 x1000/uL (130-400); RED BLOOD CELL COUNT 3.24 mill/uL (4.7-6.1); RED CELL DISTRIBUTION WIDTH 16.5 % (11.6-14.6)
[2016-10-13] MEDS: INSULIN LISPRO 100 UNITS/ML SUBCUT SCH ×4 (07:03→20:49)
[2016-10-13 07:23] VITALS: BP 99/73
[2016-10-13 07:59] LABS: PHOSPHORUS 3.6 mg/dL (2.5-4.9)
[2016-10-13] MEDS: BUDESONIDE 0.5MG/2ML NEB HHN SCH ×2 (08:06→21:01)
[2016-10-13 08:15] LABS: FOLIC ACID (FOLATE) SERUM 6.8 ng/mL (>5.38)
[2016-10-13] MEDS: FAMOTIDINE 20MG TABLET PO SCH (08:37)
[2016-10-13] MEDS: DOCUSATE SODIUM 100MG CAPSULE PO SCH ×2 (08:37→15:54)
[2016-10-13] MEDS: CARVEDILOL 6.25 MG TABLET PO SCH ×2 (08:41→20:48)
[2016-10-13 09:30] LABS: PROSTRATE SPECIFIC AG TOTAL 1.65 ng/mL (0.0-4.0)
[2016-10-13] MEDS: LACTULOSE 20G/30ML UDC PO SCH ×2 (10:00→13:07)
[2016-10-13] MEDS ORDERED: ENOXAPARIN 100MG/ML SYR SUBCUT SCH (15:00)
[2016-10-13] MEDS: CYANOCOBALAMIN 1000MCG/ML VIAL IM SCH (15:54)
[2016-10-13 20:00] VITALS: BP 134/71
[2016-10-13] MEDS: POLYETHYLENE GLYCOL 3350 (17GM) 1 DOSE PACK PO SCH (20:49)
[2016-10-14] MEDS: IPRATROPIUM/ALBUTEROL 0.5-3(2.5)MG/3ML NEB HHN SCH ×3 (02:11→14:51)
[2016-10-14] MEDS: BLOOD SUGAR DIAGNOSTIC STRIP TEST SCH ×4 (06:36→21:00)
[2016-10-14] MEDS: INSULIN LISPRO 100 UNITS/ML SUBCUT SCH ×4 (07:04→21:00)
[2016-10-14] MEDS: BUDESONIDE 0.5MG/2ML NEB HHN SCH (07:21)
[2016-10-14 08:00] VITALS: BP 115/64
[2016-10-14] MEDS: FAMOTIDINE 20MG TABLET PO SCH (08:19)
[2016-10-14] MEDS: CYANOCOBALAMIN 1000MCG/ML VIAL IM SCH (08:19)
[2016-10-14] MEDS: DOCUSATE SODIUM 100MG CAPSULE PO SCH ×2 (08:20→17:00)
[2016-10-14] MEDS: CARVEDILOL 6.25 MG TABLET PO SCH ×2 (08:20→21:00)
[2016-10-14 13:52] LABS: BASOPHILS % 1.3 % (0.0-2.0); EOSINOPHILS % 12.4 % (0.0-5.0); HEMATOCRIT. 31.1 % (42.0-52.0); HEMOGLOBIN. 10.2 g/dL (14.0-18.0); LYMPHOCYTES % 19.4 % (20.0-50.0); MEAN CORPUSCULAR HEMOGLOBIN 30.2 pg (28.0-32.0); MEAN CORPUSCULAR VOLUME 91.8 fL (80.0-94.0); MEAN PLATELET VOLUME 9.7 fl (7.4-10.4); MONOCYTES % 12.5 % (2.0-8.0); NEUTROPHILS % 54.4 % (40.0-76.0); PLATELET 102 x1000/uL (130-400); RED BLOOD CELL COUNT 3.39 mill/uL (4.7-6.1); RED CELL DISTRIBUTION WIDTH 16.8 % (11.6-14.6)
[2016-10-14 14:20] LABS: CARBON DIOXIDE 21 mEq/L (21-32); CHLORIDE 104 mEq/L (98-107)
[2016-10-14 20:10] VITALS: BP 105/70
[2016-10-14] MEDS: POLYETHYLENE GLYCOL 3350 (17GM) 1 DOSE PACK PO SCH (21:00)
[2016-10-15] VITALS (8 sets, daily range): BP systolic 103–121; BP diastolic 55–87
[2016-10-15 07:13] LABS: BASOPHILS % 1.3 % (0.0-2.0); EOSINOPHILS % 11.7 % (0.0-5.0); HEMATOCRIT. 32.8 % (42.0-52.0); HEMOGLOBIN. 10.8 g/dL (14.0-18.0); MEAN CORPUSCULAR HEMOGLOBIN 30.3 pg (28.0-32.0); MEAN CORPUSCULAR VOLUME 91.8 fL (80.0-94.0); MEAN PLATELET VOLUME 10.6 fl (7.4-10.4); MONOCYTES % 13.3 % (2.0-8.0); NEUTROPHILS % 51.7 % (40.0-76.0); PLATELET 100 x1000/uL (130-400); RED BLOOD CELL COUNT 3.57 mill/uL (4.7-6.1); RED CELL DISTRIBUTION WIDTH 16.8 % (11.6-14.6)
[2016-10-15 07:36] LABS: PHOSPHORUS 4.8 mg/dL (2.5-4.9)
[2016-10-15] MEDS: IPRATROPIUM/ALBUTEROL 0.5-3(2.5)MG/3ML NEB HHN SCH ×3 (07:53→20:54)
[2016-10-15] MEDS: CYANOCOBALAMIN 1000MCG/ML VIAL IM SCH (08:33)
[2016-10-15] MEDS: CARVEDILOL 6.25 MG TABLET PO SCH ×2 (08:36→21:44)
[2016-10-15] MEDS: DOCUSATE SODIUM 100MG CAPSULE PO SCH ×2 (08:36→17:46)
[2016-10-15] MEDS: INSULIN LISPRO 100 UNITS/ML SUBCUT SCH ×4 (08:40→21:00)
[2016-10-15] MEDS: FAMOTIDINE 20MG TABLET PO SCH (08:40)
[2016-10-15] MEDS ORDERED: LIDOCAINE HCL 1% 20ML VIAL (Pyxis) INJ ONE (10:28)
[2016-10-15] MEDS ORDERED: SODIUM BICARBONATE 4% (2.4MEQ) 5ML VIAL IV ONE (10:29)
[2016-10-15] MEDS ORDERED: FENTANYL CITRATE/PF 50MCG/ML 2ML VIAL ONE (10:43)
[2016-10-15] MEDS ORDERED: CEFAZOLIN 1000MG PREMIX 50 ML IV ONE ×2 (10:43→11:00)
[2016-10-15] MEDS ORDERED: FENTANYL CITRATE/PF 50MCG/ML 2ML VIAL IV ONE (11:00)
[2016-10-15] MEDS: BLOOD SUGAR DIAGNOSTIC STRIP TEST SCH ×3 (11:15→21:46)
[2016-10-15] MEDS ORDERED: ENOXAPARIN 100MG/ML SYR SUBCUT SCH (18:00)
[2016-10-15] MEDS: POLYETHYLENE GLYCOL 3350 (17GM) 1 DOSE PACK PO SCH (21:00)
[2016-10-16] MEDS: IPRATROPIUM/ALBUTEROL 0.5-3(2.5)MG/3ML NEB HHN SCH ×3 (01:15→20:46)
[2016-10-16] MEDS: BLOOD SUGAR DIAGNOSTIC STRIP TEST SCH ×4 (05:42→21:17)
[2016-10-16 06:38] LABS: HEMATOCRIT. 31.5 % (42.0-52.0); HEMOGLOBIN. 10.3 g/dL (14.0-18.0); MEAN CORPUSCULAR HEMOGLOBIN 30.2 pg (28.0-32.0); MEAN CORPUSCULAR VOLUME 92.5 fL (80.0-94.0); MEAN PLATELET VOLUME 10.4 fl (7.4-10.4); PLATELET 98 x1000/uL (130-400); RED CELL DISTRIBUTION WIDTH 16.8 % (11.6-14.6)
[2016-10-16 08:00] VITALS: BP 103/64
[2016-10-16] MEDS: INSULIN LISPRO 100 UNITS/ML SUBCUT SCH ×4 (09:00→21:00)
[2016-10-16] MEDS: CARVEDILOL 6.25 MG TABLET PO SCH ×2 (09:00→21:17)
[2016-10-16] MEDS: FAMOTIDINE 20MG TABLET PO SCH (09:14)
[2016-10-16] MEDS: DOCUSATE SODIUM 100MG CAPSULE PO SCH ×2 (09:14→18:24)
[2016-10-16] MEDS: CYANOCOBALAMIN 1000MCG/ML VIAL IM SCH (09:14)
[2016-10-16] MEDS: APIXABAN 2.5 MG TABLET PO SCH ×2 (10:21→21:16)
[2016-10-16 13:07] LABS: 25-HYDROXY VITAMIN D3 7.3 ng/mL (.)
[2016-10-16] MEDS ORDERED: ZINC SULFATE 220 MG ( 50 ) CAPSULE PO SCH (15:00)
[2016-10-16] MEDS ORDERED: ERGOCALCIFEROL 50000UNITS CAPSULE PO SCH ×2 (15:00→17:00)
[2016-10-16] MEDS: ZINC SULFATE 220 MG ( 50 ) CAPSULE PO SCH (18:23)
[2016-10-16 20:00] VITALS: BP 117/82
[2016-10-16] MEDS: POLYETHYLENE GLYCOL 3350 (17GM) 1 DOSE PACK PO SCH (21:00)
[2016-10-16 21:12] LABS: PLATELET ESTIMATE DECREASED
[2016-10-17] MEDS: IPRATROPIUM/ALBUTEROL 0.5-3(2.5)MG/3ML NEB HHN SCH ×2 (02:06→07:37)
[2016-10-17] MEDS: BLOOD SUGAR DIAGNOSTIC STRIP TEST SCH ×2 (06:25→12:13)
[2016-10-17 08:30] VITALS: BP 91/59
[2016-10-17] MEDS: INSULIN LISPRO 100 UNITS/ML SUBCUT SCH ×2 (08:44→12:47)
[2016-10-17] MEDS: CARVEDILOL 6.25 MG TABLET PO SCH (09:00)
[2016-10-17] MEDS: ZINC SULFATE 220 MG ( 50 ) CAPSULE PO SCH (10:03)
[2016-10-17] MEDS: APIXABAN 2.5 MG TABLET PO SCH (10:03)
[2016-10-17] MEDS: DOCUSATE SODIUM 100MG CAPSULE PO SCH (10:03)
[2016-10-17] MEDS: FAMOTIDINE 20MG TABLET PO SCH (10:03)
[2016-10-17 11:00] VITALS: BP 112/55
[2016-10-17 11:07] VITALS: BP 112/55
== END 2016-10-17 13:31 | disposition home health service (06) | DRG 286 ==
PROVIDERS: ADMIT Physical Medicine & Rehabilitation Spinal Cord Injury Medicine; ATTEND Family Medicine Adult Medicine
PROC: 5A1D60Z (ICD-10-PCS; 2016-10-14)
PROC: 02H633Z Insertion of Infusion Device into Right Atrium, Percutaneous Approach (ICD-10-PCS; principal; 2016-10-15)
PROC: B2141ZZ Fluoroscopy of Right Heart using Low Osmolar Contrast (ICD-10-PCS; 2016-10-15)
PROC: 0JH63XZ Insertion of Tunneled Vascular Access Device into Chest Subcutaneous Tissue and Fascia, Percutaneous Approach (ICD-10-PCS; 2016-10-15)
DX: I13.0 Hypertensive heart and chronic kidney disease with heart failure and stage 1 through stage 4 chronic kidney disease, or unspecified chronic kidney disease (principal); I50.23 Acute on chronic systolic (congestive) heart failure; N17.9 Acute kidney failure, unspecified; E11.22 Type 2 diabetes mellitus with diabetic chronic kidney disease; I42.9 Cardiomyopathy, unspecified; I27.2 Other secondary pulmonary hypertension; D69.6 Thrombocytopenia, unspecified; I69.354 Hemiplegia and hemiparesis following cerebral infarction affecting left non-dominant side; I27.81 Cor pulmonale (chronic); I25.10 Atherosclerotic heart disease of native coronary artery without angina pectoris; F06.31 Mood disorder due to known physiological condition with depressive features; E66.01 Morbid (severe) obesity due to excess calories; N18.9 Chronic kidney disease, unspecified; M10.9 Gout, unspecified; I48.2 Chronic atrial fibrillation; R53.81 Other malaise; E60 Dietary zinc deficiency; E55.9 Vitamin D deficiency, unspecified; I34.0 Nonrheumatic mitral (valve) insufficiency; D63.8 Anemia in other chronic diseases classified elsewhere; R26.9 Unspecified abnormalities of gait and mobility; Z99.81 Dependence on supplemental oxygen; Z87.891 Personal history of nicotine dependence; Z95.810 Presence of automatic (implantable) cardiac defibrillator; Z79.01 Long term (current) use of anticoagulants; Z68.39 Body mass index [BMI] 39.0-39.9, adult; Z79.899 Other long term (current) drug therapy; Z83.3 Family history of diabetes mellitus; Z82.49 Family history of ischemic heart disease and other diseases of the circulatory system; J44.9 Chronic obstructive pulmonary disease, unspecified
CPT/HCPCS: 36415; 36558; 36589; 77001; 80048; 80053; 80061; 82270; 82306; 82607; 82728; 82746; 82962; 83036; 83540; 83550; 83735; 84100; 84134; 84153; 84443; 84630; 85025; 92523; 93970; 94640; 97110; 97116; 97162; 97167; 97530; 97535; C1750; C1893; J0690; J1642; J1650; J2405; J3010; J3420; J3490; J7050; J7620; J7626

== ENCOUNTER 2016-10-25 09:08 | Inpatient (IN) | payer MEDICARE ==
[~2016-10-25] VITALS: Ht 172.7 cm; Wt 85.7 kg
[2016-10-25] MEDS ORDERED: IPRATROPIUM BROMIDE (0.02%) 0.5MG/2.5ML NEB HHN STA (09:18)
[2016-10-25] MEDS ORDERED: METHYLPREDNISOLONE SOD SUCC 125 MG/2 ML VIAL IV STA (09:18)
[2016-10-25] MEDS ORDERED: ALBUTEROL (0.083%) 2.5MG/3ML NEB HHN STA (09:18)
[2016-10-25] MEDS ORDERED: MAGNESIUM 2 G PREMIX 50 ML IV ONE (09:30)
[2016-10-25] MEDS ORDERED: FUROSEMIDE 20MG/2ML VIAL IVP ONE (09:45)
[2016-10-25] MEDS ORDERED: LEVOFLOXACIN 500MG PREMIX 100 ML IV ONE (09:45)
[2016-10-25 10:01] LABS: HEMATOCRIT. 36.3 % (42.0-52.0); HEMOGLOBIN. 11.8 g/dL (14.0-18.0); MEAN CORPUSCULAR VOLUME 92.4 fL (80.0-94.0); MEAN PLATELET VOLUME 8.9 fl (7.4-10.4); PLATELET 132 x1000/uL (130-400); RED BLOOD CELL COUNT 3.92 mill/uL (4.7-6.1); RED CELL DISTRIBUTION WIDTH 16.3 % (11.6-14.6)
[2016-10-25 10:10] LABS: INR 1.3; PARTIAL THROMBOPLASTIN TIME 28.7 sec (23.4-31.0); PROTHROMBIN TIME 13.3 sec (9.4-11.6)
[2016-10-25 10:19] LABS: CARBON DIOXIDE 31 mEq/L (21-32); CHLORIDE 96 mEq/L (98-107)
[2016-10-25 10:36] LABS: CLARITY URINE CLEAR (CLEAR); COLOR URINE YELLOW (YELLOW); GLUCOSE URINE NEGATIVE (NEGATIVE); KETONES URINE NEGATIVE (NEGATIVE); LEUKOCYTE ESTERASE URINE NEGATIVE (NEGATIVE); NITRITE URINE NEGATIVE (NEGATIVE); OCCULT BLOOD URINE NEGATIVE (NEGATIVE); PROTEIN URINE 3+ (NEGATIVE); UROBILINOGEN URINE 0.2 E.U./dL (0.2-1.0)
[2016-10-25] MEDS ORDERED: ASPIRIN 81MG TABLET PO ONE (10:45)
[2016-10-25] MEDS ORDERED: IPRATROPIUM/ALBUTEROL 0.5-3(2.5)MG/3ML NEB INH PRN (10:45)
[2016-10-25] MEDS ORDERED: DOCUSATE SODIUM 100MG CAPSULE PO PRN (10:45)
[2016-10-25] MEDS ORDERED: ONDANSETRON HCL 4MG/2ML VIAL IV PRN (10:45)
[2016-10-25] MEDS ORDERED: ACETAMINOPHEN 325MG TABLET PO PRN (10:45)
[2016-10-25] MEDS ORDERED: LEVOFLOXACIN 500MG PREMIX 100 ML IV SCH (10:45)
[2016-10-25 12:43] LABS: ATYPICAL LYMPHOCYTES 2
[2016-10-25 12:44] LABS: PLATELET ESTIMATE NORMAL
[2016-10-25 13:50] LABS: *AMPHETAMINES SCREEN URINE NEGATIVE (NEGATIVE); *BARBITURATES SCREEN URINE NEGATIVE (NEGATIVE); *BENZODIAZEPINES SCREEN URINE NEGATIVE (NEGATIVE); *COCAINE SCREEN URINE NEGATIVE (NEGATIVE); CANNABINOID URINE SCREEN NEGATIVE (NEGATIVE); METHADONE URINE SCREEN NEGATIVE (NEGATIVE); OPIATES URINE SCREEN NEGATIVE (NEGATIVE); PHENCYCLIDINE URINE SCREEN NEGATIVE (NEGATIVE)
[2016-10-25 13:54] VITALS: BP 108/65
[2016-10-25] MEDS: ENOXAPARIN 100MG/ML SYR SUBCUT SCH (14:30)
[2016-10-25] MEDS ORDERED: DEXTROSE 50% WATER 50ML SYRINGE IV PRN ×2 (15:00)
[2016-10-25] MEDS: BLOOD SUGAR DIAGNOSTIC STRIP TEST SCH ×2 (17:01→21:00)
[2016-10-25] MEDS: INSULIN LISPRO 100 UNITS/ML SUBCUT SCH ×2 (17:04→21:00)
[2016-10-25 17:09] VITALS: BP 101/73
[2016-10-25] MEDS ORDERED: BLOOD SUGAR DIAGNOSTIC STRIP TEST SCH (17:20)
[2016-10-25] MEDS ORDERED: INSULIN LISPRO 100 UNITS/ML SUBCUT SCH (17:50)
[2016-10-25] MEDS ORDERED: WARFARIN SODIUM 5MG TABLET PO SCH (18:00)
[2016-10-25] MEDS ORDERED: ZOLPIDEM TARTRATE 5MG TABLET PO PRN (21:00)
[2016-10-25] MEDS: CARVEDILOL 6.25 MG TABLET PO SCH (21:00)
[2016-10-26] VITALS: BP 108/66
[2016-10-26] MEDS: IPRATROPIUM/ALBUTEROL 0.5-3(2.5)MG/3ML NEB INH SCH ×4 (01:07→20:30)
[2016-10-26 04:36] VITALS: BP 100/64
[2016-10-26] MEDS: BLOOD SUGAR DIAGNOSTIC STRIP TEST SCH ×4 (07:01→21:00)
[2016-10-26] MEDS: OMEPRAZOLE 20MG CAPSULE EXTENDED RELEASE PO SCH (07:01)
[2016-10-26] MEDS: INSULIN LISPRO 100 UNITS/ML SUBCUT SCH ×4 (07:01→21:00)
[2016-10-26 07:25] LABS: INR 2.4; PROTHROMBIN TIME 25.1 sec (9.4-11.6)
[2016-10-26 07:28] LABS: BASOPHILS % 0.3 % (0.0-2.0); EOSINOPHILS % 0.1 % (0.0-5.0); HEMATOCRIT. 35.2 % (42.0-52.0); HEMOGLOBIN. 11.5 g/dL (14.0-18.0); LYMPHOCYTES % 22.2 % (20.0-50.0); MEAN CORPUSCULAR HEMOGLOBIN 29.9 pg (28.0-32.0); MEAN CORPUSCULAR VOLUME 91.7 fL (80.0-94.0); MEAN PLATELET VOLUME 10.1 fl (7.4-10.4); MONOCYTES % 7.7 % (2.0-8.0); NEUTROPHILS % 69.7 % (40.0-76.0); PLATELET 135 x1000/uL (130-400); RED BLOOD CELL COUNT 3.83 mill/uL (4.7-6.1); RED CELL DISTRIBUTION WIDTH 15.8 % (11.6-14.6)
[2016-10-26 08:00] VITALS: BP 107/65
[2016-10-26] MEDS: LOSARTAN POTASSIUM 25 MG TABLET PO SCH (08:04)
[2016-10-26] MEDS: CARVEDILOL 6.25 MG TABLET PO SCH ×2 (08:04→21:00)
[2016-10-26] MEDS: ENOXAPARIN 100MG/ML SYR SUBCUT SCH (08:06)
[2016-10-26 08:30] LABS: PHOSPHORUS 3.1 mg/dL (2.5-4.9)
[2016-10-26 12:00] VITALS: BP 91/57
[2016-10-26] MEDS ORDERED: CALCITRIOL 0.25MCG CAPSULE PO SCH (12:15)
[2016-10-26 16:00] VITALS: BP 90/56
[2016-10-26 20:00] VITALS: BP 106/72
[2016-10-27] VITALS: BP 115/76
[2016-10-27] MEDS: IPRATROPIUM/ALBUTEROL 0.5-3(2.5)MG/3ML NEB INH SCH ×4 (02:15→20:19)
[2016-10-27 04:00] VITALS: BP 111/66
[2016-10-27] MEDS: BLOOD SUGAR DIAGNOSTIC STRIP TEST SCH ×4 (06:34→21:12)
[2016-10-27] MEDS: OMEPRAZOLE 20MG CAPSULE EXTENDED RELEASE PO SCH (06:34)
[2016-10-27 07:04] LABS: INR 3.2; PROTHROMBIN TIME 32.8 sec (9.4-11.6)
[2016-10-27 07:33] LABS: BASOPHILS % 0.1 % (0.0-2.0); EOSINOPHILS % 0.1 % (0.0-5.0); HEMATOCRIT. 34.5 % (42.0-52.0); HEMOGLOBIN. 11.3 g/dL (14.0-18.0); LYMPHOCYTES % 15.7 % (20.0-50.0); MEAN CORPUSCULAR HEMOGLOBIN 29.9 pg (28.0-32.0); MEAN CORPUSCULAR VOLUME 91.4 fL (80.0-94.0); MEAN PLATELET VOLUME 10.1 fl (7.4-10.4); MONOCYTES % 9.4 % (2.0-8.0); NEUTROPHILS % 74.7 % (40.0-76.0); PLATELET 161 x1000/uL (130-400); RED BLOOD CELL COUNT 3.77 mill/uL (4.7-6.1)
[2016-10-27] MEDS: INSULIN LISPRO 100 UNITS/ML SUBCUT SCH ×4 (07:50→21:00)
[2016-10-27] MEDS: CARVEDILOL 6.25 MG TABLET PO SCH ×2 (07:54→21:13)
[2016-10-27] MEDS: LOSARTAN POTASSIUM 25 MG TABLET PO SCH (07:55)
[2016-10-27 08:07] VITALS: BP 91/58
[2016-10-27] MEDS: CALCITRIOL 0.25MCG CAPSULE PO SCH (08:21)
[2016-10-27] MEDS ORDERED: LEVOFLOXACIN 250MG PREMIX 50 ML IV SCH (11:00)
[2016-10-27 12:00] VITALS: BP 119/66
[2016-10-27 16:00] VITALS: BP 92/64
[2016-10-27 20:00] VITALS: BP 107/71
[2016-10-28] VITALS: BP 90/60
[2016-10-28] MEDS: IPRATROPIUM/ALBUTEROL 0.5-3(2.5)MG/3ML NEB INH SCH ×2 (01:20→10:20)
[2016-10-28 04:00] VITALS: BP 99/60
[2016-10-28 06:16] LABS: INR 2.2; PROTHROMBIN TIME 23.4 sec (9.4-11.6)
[2016-10-28] MEDS: BLOOD SUGAR DIAGNOSTIC STRIP TEST SCH ×3 (07:18→17:20)
[2016-10-28] MEDS: INSULIN LISPRO 100 UNITS/ML SUBCUT SCH ×3 (07:50→17:25)
[2016-10-28 07:51] VITALS: BP 106/58
[2016-10-28] MEDS: LOSARTAN POTASSIUM 25 MG TABLET PO SCH (08:00)
[2016-10-28] MEDS: CARVEDILOL 6.25 MG TABLET PO SCH (08:00)
[2016-10-28] MEDS: CALCITRIOL 0.25MCG CAPSULE PO SCH (08:15)
[2016-10-28] MEDS ORDERED: FAMOTIDINE 20MG TABLET PO SCH (09:00)
[2016-10-28 12:00] VITALS: BP 116/68
[2016-10-28 15:10] VITALS: BP 117/82
[2016-10-28 16:00] VITALS: BP 101/74
[2016-10-28] MEDS ORDERED: WARFARIN SODIUM 2MG TABLET PO NR (18:00)
== END 2016-10-28 18:15 | disposition home health service (06) | DRG 871 ==
LOC: ER 09:08 → 6WST 10:16 → EDBEDREQTM 10:18 → EDBEDREQ 10:18 → ENRESERV 12:30
PROVIDERS: ADMIT Family Medicine Adult Medicine; ATTEND Family Medicine Adult Medicine
PROC: 5A1D60Z (ICD-10-PCS; principal; 2016-10-27)
DX: A41.9 Sepsis, unspecified organism (principal); J96.20 Acute and chronic respiratory failure, unspecified whether with hypoxia or hypercapnia; I50.41 Acute combined systolic (congestive) and diastolic (congestive) heart failure; E46 Unspecified protein-calorie malnutrition; N18.6 End stage renal disease; D68.59 Other primary thrombophilia; I42.9 Cardiomyopathy, unspecified; J44.0 Chronic obstructive pulmonary disease with (acute) lower respiratory infection; J44.1 Chronic obstructive pulmonary disease with (acute) exacerbation; I13.2 Hypertensive heart and chronic kidney disease with heart failure and with stage 5 chronic kidney disease, or end stage renal disease; E11.22 Type 2 diabetes mellitus with diabetic chronic kidney disease; I27.2 Other secondary pulmonary hypertension; I48.2 Chronic atrial fibrillation; D63.8 Anemia in other chronic diseases classified elsewhere; E66.01 Morbid (severe) obesity due to excess calories; E78.00 Pure hypercholesterolemia, unspecified; G47.33 Obstructive sleep apnea (adult) (pediatric); I25.10 Atherosclerotic heart disease of native coronary artery without angina pectoris; I27.81 Cor pulmonale (chronic); I34.0 Nonrheumatic mitral (valve) insufficiency; J20.9 Acute bronchitis, unspecified; M10.9 Gout, unspecified; Z99.2 Dependence on renal dialysis; Z99.81 Dependence on supplemental oxygen; Z86.73 Personal history of transient ischemic attack (TIA), and cerebral infarction without residual deficits; Z79.01 Long term (current) use of anticoagulants; Z95.5 Presence of coronary angioplasty implant and graft; Z95.810 Presence of automatic (implantable) cardiac defibrillator; Z68.28 Body mass index [BMI] 28.0-28.9, adult
CPT/HCPCS: 36415; 71010; 80048; 80053; 80162; 80305; 81001; 82962; 83605; 83690; 83735; 83880; 84100; 84484; 85025; 85610; 85730; 87040; 87086; 93005; 93970; 94640; 94664; 96365; 96366; 96368; 96375; 97161; 99291; J1650; J1815; J1940; J1956; J2930; J3475; J7030; J7611; J7620

== ENCOUNTER 2016-11-18 11:44 | Inpatient (IN) | payer MEDICARE ==
[~2016-11-18] VITALS: Ht 170.2 cm; Wt 95.7 kg
[2016-11-18] MEDS ORDERED: ONDANSETRON HCL 4MG/2ML VIAL IV STA (13:50)
[2016-11-18 14:39] LABS: BASOPHILS % 1.5 % (0.0-2.0); EOSINOPHILS % 4.8 % (0.0-5.0); HEMATOCRIT. 35.9 % (42.0-52.0); HEMOGLOBIN. 11.7 g/dL (14.0-18.0); LYMPHOCYTES % 21.3 % (20.0-50.0); MEAN CORPUSCULAR HEMOGLOBIN 30.1 pg (28.0-32.0); MEAN CORPUSCULAR VOLUME 92.7 fL (80.0-94.0); MEAN PLATELET VOLUME 9.1 fl (7.4-10.4); NEUTROPHILS % 66.4 % (40.0-76.0); PLATELET 128 x1000/uL (130-400); RED BLOOD CELL COUNT 3.87 mill/uL (4.7-6.1); RED CELL DISTRIBUTION WIDTH 16.4 % (11.6-14.6)
[2016-11-18 14:51] LABS: INR 1.5; PROTHROMBIN TIME 15.6 sec (9.4-11.6)
[2016-11-18 15:03] LABS: CARBON DIOXIDE 32 mEq/L (21-32); CHLORIDE 94 mEq/L (98-107); CREATINE KINASE 62 IU/L (39-308)
[2016-11-18] MEDS ORDERED: AMLO2.5T45 PO (16:55)
[2016-11-18] MEDS ORDERED: ALLO100T PO (16:55)
[2016-11-18] MEDS ORDERED: CARV6.2548 PO (16:55)
[2016-11-18] MEDS ORDERED: ATOR20TA65 PO (16:55)
[2016-11-18] MEDS ORDERED: FAMO20TA8 PO (16:55)
[2016-11-18] MEDS ORDERED: CARV12.545 PO (16:55)
[2016-11-18] MEDS ORDERED: SACU1TAB7 PO (16:55)
[2016-11-18] MEDS ORDERED: ERGO500013 PO (16:55)
[2016-11-18] MEDS ORDERED: ALBU2.5V13 NEB (16:55)
[2016-11-18] MEDS ORDERED: IRON PO (16:55)
[2016-11-18] MEDS ORDERED: FURO40TA5 PO (16:55)
[2016-11-18] MEDS ORDERED: LEVO250T2 PO (16:55)
[2016-11-18] MEDS ORDERED: FURO80TA3 PO (16:55)
[2016-11-18] MEDS ORDERED: WARF5TAB73 PO (16:55)
[2016-11-18] MEDS ORDERED: FLUT1DIS3 IH (16:55)
[2016-11-18] MEDS ORDERED: ONDA4TAB5 PO (16:55)
[2016-11-18] MEDS ORDERED: DIGO125T82 PO (16:55)
[2016-11-18] MEDS ORDERED: SODI454P9 PO (16:55)
[2016-11-18] MEDS ORDERED: LISI-604 PO (16:55)
[2016-11-18] MEDS ORDERED: SPIR25TA4 PO (16:55)
[2016-11-18] MEDS ORDERED: DOCU-150 PO (16:55)
[2016-11-18 18:00] VITALS: BP_SYST 143; BP_SYST 145; BP_DIAS 83; BP_DIAS 98
[2016-11-18] MEDS ORDERED: MAGNESIUM/ALUMINUM HYDROXIDE/SIMETHICONE 30ML UDC PO PRN (18:00)
[2016-11-18] MEDS ORDERED: CLONIDINE 0.1MG TABLET PO PRN (18:00)
[2016-11-18] MEDS ORDERED: DOCUSATE SODIUM 100MG CAPSULE PO PRN (18:00)
[2016-11-18] MEDS ORDERED: ACETAMINOPHEN 325MG TABLET PO PRN (18:00)
[2016-11-18] MEDS ORDERED: ONDANSETRON HCL 4MG/2ML VIAL IV PRN (18:00)
[2016-11-18 20:00] VITALS: BP 152/83
[2016-11-18] MEDS ORDERED: INFLUENZA VIRUS VACCINE 0.5ML SYR IM ONE (20:00)
[2016-11-18] MEDS ORDERED: ZOLPIDEM TARTRATE 5MG TABLET PO PRN (21:00)
[2016-11-18] MEDS: IPRATROPIUM/ALBUTEROL 0.5-3(2.5)MG/3ML NEB INH PRN (21:55)
[2016-11-18 22:00] VITALS: BP 158/116
[2016-11-18] MEDS ORDERED: FUROSEMIDE 40MG TABLET PO NR (22:30)
[2016-11-19] VITALS (10 sets, daily range): BP systolic 118–154; BP diastolic 47–97
[2016-11-19 06:39] LABS: BASOPHILS % 0.4 % (0.0-2.0); EOSINOPHILS % 0.1 % (0.0-5.0); HEMATOCRIT. 32.3 % (42.0-52.0); HEMOGLOBIN. 10.6 g/dL (14.0-18.0); LYMPHOCYTES % 17.8 % (20.0-50.0); MEAN CORPUSCULAR HEMOGLOBIN 30.1 pg (28.0-32.0); MEAN CORPUSCULAR VOLUME 92.2 fL (80.0-94.0); MEAN PLATELET VOLUME 10.3 fl (7.4-10.4); MONOCYTES % 12.9 % (2.0-8.0); NEUTROPHILS % 68.8 % (40.0-76.0); PLATELET 128 x1000/uL (130-400); RED BLOOD CELL COUNT 3.51 mill/uL (4.7-6.1); RED CELL DISTRIBUTION WIDTH 16.3 % (11.6-14.6)
[2016-11-19 07:09] LABS: PHOSPHORUS 4.1 mg/dL (2.5-4.9)
[2016-11-19] MEDS: IPRATROPIUM/ALBUTEROL 0.5-3(2.5)MG/3ML NEB INH PRN ×4 (08:03→20:28)
[2016-11-19] MEDS: OMEPRAZOLE 20MG CAPSULE EXTENDED RELEASE PO SCH (08:29)
[2016-11-19] MEDS: FERROUS SULFATE 325MG TABLET PO SCH ×3 (08:29→17:03)
[2016-11-19] MEDS: DOCUSATE SODIUM 100MG CAPSULE PO SCH ×2 (08:47→17:04)
[2016-11-19] MEDS: CARVEDILOL 6.25 MG TABLET PO SCH ×2 (08:49→21:26)
[2016-11-19] MEDS: LISINOPRIL 20MG TABLET PO SCH ×2 (08:51→21:27)
[2016-11-19] MEDS: ALLOPURINOL 100 MG TABLET PO SCH (08:51)
[2016-11-19] MEDS ORDERED: SPIRONOLACTONE 25MG TABLET PO SCH (09:00)
[2016-11-19] MEDS ORDERED: FUROSEMIDE 80MG TABLET PO SCH (09:00)
[2016-11-19 12:24] LABS: DIGOXIN 1.5 ng/mL (0.9-2.0)
[2016-11-19 12:54] LABS: TROPONIN I 1.7 ng/mL (0.00-0.04)
[2016-11-19] MEDS ORDERED: DIGOXIN 125MCG TABLET PO SCH (18:00)
[2016-11-19] MEDS ORDERED: LACTULOSE 20G/30ML UDC PO NR (19:15)
[2016-11-19] MEDS ORDERED: ATORVASTATIN CALCIUM 20MG TABLET PO SCH (21:00)
[2016-11-19] MEDS ORDERED: FAMOTIDINE 20MG TABLET PO SCH (21:00)
[2016-11-20] VITALS (7 sets, daily range): BP systolic 122–153; BP diastolic 73–98
[2016-11-20] MEDS: IPRATROPIUM/ALBUTEROL 0.5-3(2.5)MG/3ML NEB INH PRN ×2 (00:01→04:31)
[2016-11-20] MEDS: OMEPRAZOLE 20MG CAPSULE EXTENDED RELEASE PO SCH (06:55)
[2016-11-20 07:57] LABS: BASOPHILS % 0.6 % (0.0-2.0); EOSINOPHILS % 0.4 % (0.0-5.0); HEMATOCRIT. 34.5 % (42.0-52.0); HEMOGLOBIN. 11.2 g/dL (14.0-18.0); LYMPHOCYTES % 14.3 % (20.0-50.0); MEAN CORPUSCULAR HEMOGLOBIN 30.4 pg (28.0-32.0); MEAN CORPUSCULAR VOLUME 93.3 fL (80.0-94.0); MEAN PLATELET VOLUME 9.5 fl (7.4-10.4); MONOCYTES % 13.3 % (2.0-8.0); NEUTROPHILS % 71.4 % (40.0-76.0); PLATELET 124 x1000/uL (130-400); RED CELL DISTRIBUTION WIDTH 16.3 % (11.6-14.6)
[2016-11-20] MEDS: FERROUS SULFATE 325MG TABLET PO SCH (08:56)
[2016-11-20] MEDS: ALLOPURINOL 100 MG TABLET PO SCH (08:57)
[2016-11-20] MEDS: DOCUSATE SODIUM 100MG CAPSULE PO SCH (08:57)
[2016-11-20] MEDS: CARVEDILOL 6.25 MG TABLET PO SCH (09:00)
[2016-11-20] MEDS: LISINOPRIL 20MG TABLET PO SCH (09:00)
== END 2016-11-20 11:25 | disposition home health service (06) | DRG 291 ==
LOC: EDBEDREQ 15:32 → ENRESERV 15:34 → ER 15:48 → 5EST 15:50 → CANBEDREQ 16:37 → ER 16:59
PROVIDERS: ADMIT Family Medicine Adult Medicine; ATTEND Family Medicine Adult Medicine
DX: I13.2 Hypertensive heart and chronic kidney disease with heart failure and with stage 5 chronic kidney disease, or end stage renal disease (principal); I50.23 Acute on chronic systolic (congestive) heart failure; J96.20 Acute and chronic respiratory failure, unspecified whether with hypoxia or hypercapnia; N18.6 End stage renal disease; E11.22 Type 2 diabetes mellitus with diabetic chronic kidney disease; I27.81 Cor pulmonale (chronic); J44.0 Chronic obstructive pulmonary disease with (acute) lower respiratory infection; E44.1 Mild protein-calorie malnutrition; I42.9 Cardiomyopathy, unspecified; J20.9 Acute bronchitis, unspecified; D63.8 Anemia in other chronic diseases classified elsewhere; E66.9 Obesity, unspecified; Z68.33 Body mass index [BMI] 33.0-33.9, adult; E78.00 Pure hypercholesterolemia, unspecified; G47.33 Obstructive sleep apnea (adult) (pediatric); I25.10 Atherosclerotic heart disease of native coronary artery without angina pectoris; I34.0 Nonrheumatic mitral (valve) insufficiency; I48.2 Chronic atrial fibrillation; K59.00 Constipation, unspecified; M1A.9XX0 Chronic gout, unspecified, without tophus (tophi); Z79.01 Long term (current) use of anticoagulants; Z82.49 Family history of ischemic heart disease and other diseases of the circulatory system; Z86.73 Personal history of transient ischemic attack (TIA), and cerebral infarction without residual deficits; Z95.5 Presence of coronary angioplasty implant and graft; Z95.810 Presence of automatic (implantable) cardiac defibrillator; Z99.2 Dependence on renal dialysis; Z99.81 Dependence on supplemental oxygen
CPT/HCPCS: 36415; 71010; 74000; 80048; 80053; 80076; 80162; 82550; 83605; 83690; 83735; 83880; 84100; 84443; 84484; 85025; 85610; 87040; 90686; 93005; 93970; 94640; 99285; J2405; J7030; J7620

== ENCOUNTER 2016-12-06 17:55 | Inpatient (IN) | payer MEDICARE, OTHER ==
[~2016-12-06] VITALS: Ht 170.2 cm; Wt 107.2 kg
[~2016-12-06 17:55] MED LIST changes: -ALBU2.5V13; +ALBU2.5V13 NEB; +AMLO2.5T45 PO; +ATOR20TA65 PO; +CARV12.545 PO; +CARV6.2548 PO; -COR6 PO; +DOCU-150 PO; +ERGO500013 PO; +FAMO20TA8 PO; -FLUT1DIS3; +FLUT1DIS3 IH; +FURO80TA3 PO; +IRON PO; +LEVO250T2 PO; +ONDA4TAB5 PO; -RIVA20TA PO; +SACU1TAB7 PO; +SODI454P9 PO; +WARF5TAB73 PO
[2016-12-06 18:42] LABS: EOSINOPHILS % 8.5 % (0.0-5.0); HEMATOCRIT. 32.8 % (42.0-52.0); HEMOGLOBIN. 10.8 g/dL (14.0-18.0); MEAN CORPUSCULAR VOLUME 94.1 fL (80.0-94.0); NEUTROPHILS % 62.5 % (40.0-76.0); PLATELET 128 x1000/uL (130-400); RED BLOOD CELL COUNT 3.49 mill/uL (4.7-6.1); RED CELL DISTRIBUTION WIDTH 16.3 % (11.6-14.6)
[2016-12-06 19:00] LABS: CARBON DIOXIDE 30 mEq/L (21-32); CHLORIDE 100 mEq/L (98-107)
[2016-12-06] MEDS ORDERED: ALBUTEROL (0.083%) 2.5MG/3ML NEB HHN STA (22:09)
[2016-12-06] MEDS ORDERED: IPRATROPIUM BROMIDE (0.02%) 0.5MG/2.5ML NEB HHN STA (22:09)
[2016-12-06 23:15] VITALS: BP 109/66
[2016-12-07] MEDS ORDERED: GUAIFENESIN 200MG/10ML SUGAR FREE UDC PO PRN (00:30)
[2016-12-07] MEDS ORDERED: DIPHENHYDRAMINE 50MG/ML VIAL IV PRN (00:30)
[2016-12-07] MEDS ORDERED: ONDANSETRON HCL 4MG/2ML VIAL IV PRN (00:30)
[2016-12-07] MEDS ORDERED: MAGNESIUM/ALUMINUM HYDROXIDE/SIMETHICONE 30ML UDC PO PRN (00:30)
[2016-12-07] MEDS ORDERED: LORAZEPAM 0.5MG TABLET PO PRN (00:30)
[2016-12-07] MEDS ORDERED: ACETAMINOPHEN 325MG TABLET PO PRN (00:30)
[2016-12-07] MEDS ORDERED: CLONIDINE 0.1MG TABLET PO PRN (00:30)
[2016-12-07] MEDS ORDERED: DEXTROSE 50% WATER 50ML SYRINGE IV PRN (01:15)
[2016-12-07] MEDS ORDERED: MORPHINE SULFATE 10 MG/ML CPJ IV PRN (01:15)
[2016-12-07] MEDS ORDERED: HYDROCODONE/ACETAMINOPHEN 5/325MG TABLET PO PRN (01:15)
[2016-12-07 04:00] VITALS: BP 106/52
[2016-12-07] MEDS: INSULIN LISPRO 100 UNITS/ML SUBCUT SCH ×4 (06:00→23:55)
[2016-12-07 06:15] LABS: BASOPHILS % 1.1 % (0.0-2.0); EOSINOPHILS % 9.2 % (0.0-5.0); HEMATOCRIT. 31.2 % (42.0-52.0); HEMOGLOBIN. 10.1 g/dL (14.0-18.0); MEAN CORPUSCULAR HEMOGLOBIN 30.8 pg (28.0-32.0); MEAN CORPUSCULAR VOLUME 95.3 fL (80.0-94.0); MEAN PLATELET VOLUME 9.2 fl (7.4-10.4); MONOCYTES % 14.7 % (2.0-8.0); PLATELET 116 x1000/uL (130-400); RED BLOOD CELL COUNT 3.27 mill/uL (4.7-6.1)
[2016-12-07] MEDS: BLOOD SUGAR DIAGNOSTIC STRIP TEST SCH ×4 (06:16→23:56)
[2016-12-07 06:30] LABS: CARBON DIOXIDE 32 mEq/L (21-32); CHLORIDE 99 mEq/L (98-107)
[2016-12-07] MEDS ORDERED: NON FORMULARY PATIENT HOME MED EA XX SCH (06:30)
[2016-12-07 06:49] LABS: PHOSPHORUS 2.9 mg/dL (2.5-4.9)
[2016-12-07 08:00] VITALS: BP 111/64
[2016-12-07] MEDS: FERROUS SULFATE 325MG TABLET PO SCH ×2 (08:21→17:18)
[2016-12-07] MEDS: FAMOTIDINE 20MG TABLET PO SCH (08:21)
[2016-12-07] MEDS: SPIRONOLACTONE 25MG TABLET PO SCH (08:22)
[2016-12-07] MEDS: DIGOXIN 125MCG TABLET PO SCH (08:22)
[2016-12-07] MEDS: LISINOPRIL 20MG TABLET PO SCH ×2 (08:22→21:00)
[2016-12-07] MEDS: ATORVASTATIN CALCIUM 20MG TABLET PO SCH (08:22)
[2016-12-07] MEDS: CARVEDILOL 6.25 MG TABLET PO SCH ×2 (08:23→21:00)
[2016-12-07] MEDS: ALLOPURINOL 100 MG TABLET PO SCH (08:24)
[2016-12-07] MEDS ORDERED: PANTOPRAZOLE SODIUM 40 MG/VIAL IV SCH (09:00)
[2016-12-07] MEDS ORDERED: AMLODIPINE 2.5MG TABLET PO SCH (09:00)
[2016-12-07] MEDS ORDERED: ERGOCALCIFEROL 50000UNITS CAPSULE PO SCH (09:00)
[2016-12-07] MEDS: IPRATROPIUM/ALBUTEROL 0.5-3(2.5)MG/3ML NEB HHN SCH ×3 (09:45→21:13)
[2016-12-07] MEDS ORDERED: FUROSEMIDE 80MG TABLET PO SCH (10:00)
[2016-12-07 11:02] LABS: INR 1.6; PROTHROMBIN TIME 16.8 sec (9.4-11.6)
[2016-12-07 12:00] VITALS: BP_SYST 106; BP_SYST 115; BP_SYST 118; BP_DIAS 71; BP_DIAS 74; BP_DIAS 79
[2016-12-07] MEDS: BUDESONIDE 0.5MG/2ML NEB HHN SCH (15:58)
[2016-12-07 16:00] VITALS: BP 107/66
[2016-12-07] MEDS: ENTRESTO 49 MG/51 MG XX SCH (17:00)
[2016-12-07] MEDS ORDERED: WARFARIN SODIUM 5MG TABLET PO SCH ×2 (18:00)
[2016-12-07 20:00] VITALS: BP_SYST 102; BP_SYST 108; BP_SYST 123; BP_DIAS 56; BP_DIAS 72; BP_DIAS 74
[2016-12-07] MEDS ORDERED: FUROSEMIDE 40MG TABLET PO SCH (21:00)
[2016-12-08] VITALS (8 sets, daily range): BP systolic 94–110; BP diastolic 47–68
[2016-12-08] MEDS: BUDESONIDE 0.5MG/2ML NEB HHN SCH ×3 (00:51→21:47)
[2016-12-08] MEDS: IPRATROPIUM/ALBUTEROL 0.5-3(2.5)MG/3ML NEB HHN SCH ×6 (00:51→21:48)
[2016-12-08] MEDS: INSULIN LISPRO 100 UNITS/ML SUBCUT SCH ×4 (05:42→21:00)
[2016-12-08] MEDS: BLOOD SUGAR DIAGNOSTIC STRIP TEST SCH ×5 (05:42→21:00)
[2016-12-08 06:45] LABS: EOSINOPHILS % 9.8 % (0.0-5.0); HEMATOCRIT. 29.9 % (42.0-52.0); HEMOGLOBIN. 9.6 g/dL (14.0-18.0); LYMPHOCYTES % 21.9 % (20.0-50.0); MEAN CORPUSCULAR HEMOGLOBIN 30.5 pg (28.0-32.0); MEAN CORPUSCULAR VOLUME 95.1 fL (80.0-94.0); MEAN PLATELET VOLUME 9.4 fl (7.4-10.4); MONOCYTES % 13.8 % (2.0-8.0); NEUTROPHILS % 53.5 % (40.0-76.0); PLATELET 122 x1000/uL (130-400); RED BLOOD CELL COUNT 3.14 mill/uL (4.7-6.1)
[2016-12-08 06:59] LABS: D-DIMER 0.66 mg/L FEU (<0.50); INR 1.5; PROTHROMBIN TIME 15.4 sec (9.4-11.6)
[2016-12-08 07:09] LABS: CARBON DIOXIDE 32 mEq/L (21-32); CHLORIDE 98 mEq/L (98-107); CREATINE KINASE 51 IU/L (39-308); CREATINE KINASE MB FRACTION 1.7 ng/mL (0.5-3.6); HDL CHOLESTEROL 66 mg/dL (40-59); LDL CHOLESTEROL 41 mg/dL (5-100)
[2016-12-08 07:18] LABS: TROPONIN I 0.98 ng/mL (0.00-0.04)
[2016-12-08] MEDS: ENTRESTO 49 MG/51 MG XX SCH ×2 (08:59→21:00)
[2016-12-08] MEDS: LISINOPRIL 20MG TABLET PO SCH ×2 (09:00→21:00)
[2016-12-08] MEDS: FERROUS SULFATE 325MG TABLET PO SCH ×2 (09:00→18:12)
[2016-12-08] MEDS: ALLOPURINOL 100 MG TABLET PO SCH (09:01)
[2016-12-08] MEDS: DIGOXIN 125MCG TABLET PO SCH (09:01)
[2016-12-08] MEDS: FAMOTIDINE 20MG TABLET PO SCH (09:01)
[2016-12-08] MEDS: ATORVASTATIN CALCIUM 20MG TABLET PO SCH (09:01)
[2016-12-08] MEDS: SPIRONOLACTONE 25MG TABLET PO SCH (09:02)
[2016-12-08] MEDS: CARVEDILOL 6.25 MG TABLET PO SCH ×2 (09:02→21:00)
[2016-12-08] MEDS ORDERED: POTASSIUM CHLORIDE 20MEQ TABLET SR PO NR (15:45)
[2016-12-08] MEDS ORDERED: WARFARIN SODIUM 3MG TABLET PO SCH (18:00)
[2016-12-09] MEDS: IPRATROPIUM/ALBUTEROL 0.5-3(2.5)MG/3ML NEB HHN SCH ×6 (01:53→21:17)
[2016-12-09 05:58] LABS: BASOPHILS % 1.3 % (0.0-2.0); EOSINOPHILS % 10.7 % (0.0-5.0); HEMATOCRIT. 30.6 % (42.0-52.0); MEAN CORPUSCULAR HEMOGLOBIN 30.8 pg (28.0-32.0); MEAN CORPUSCULAR VOLUME 94.5 fL (80.0-94.0); MEAN PLATELET VOLUME 9.3 fl (7.4-10.4); MONOCYTES % 10.1 % (2.0-8.0); NEUTROPHILS % 55.9 % (40.0-76.0); PLATELET 118 x1000/uL (130-400); RED BLOOD CELL COUNT 3.24 mill/uL (4.7-6.1); RED CELL DISTRIBUTION WIDTH 16.9 % (11.6-14.6)
[2016-12-09 06:24] LABS: INR 1.5; PROTHROMBIN TIME 15.2 sec (9.4-11.6)
[2016-12-09 06:43] LABS: CHLORIDE 96 mEq/L (98-107)
[2016-12-09] MEDS: BLOOD SUGAR DIAGNOSTIC STRIP TEST SCH ×4 (06:47→21:47)
[2016-12-09 07:04] LABS: CARBON DIOXIDE 27 mEq/L (21-32); DIGOXIN 1.4 ng/mL (0.9-2.0); PHOSPHORUS 3.4 mg/dL (2.5-4.9)
[2016-12-09] MEDS: INSULIN LISPRO 100 UNITS/ML SUBCUT SCH ×4 (07:41→21:00)
[2016-12-09 07:58] LABS: TROPONIN I 0.97 ng/mL (0.00-0.04)
[2016-12-09 08:00] VITALS: BP_SYST 103; BP_SYST 122; BP_SYST 125; BP_DIAS 57; BP_DIAS 79; BP_DIAS 80
[2016-12-09] MEDS: FERROUS SULFATE 325MG TABLET PO SCH ×2 (08:32→18:21)
[2016-12-09] MEDS: SPIRONOLACTONE 25MG TABLET PO SCH (09:27)
[2016-12-09] MEDS: DIGOXIN 125MCG TABLET PO SCH (09:27)
[2016-12-09] MEDS: ATORVASTATIN CALCIUM 20MG TABLET PO SCH (09:27)
[2016-12-09] MEDS: LISINOPRIL 20MG TABLET PO SCH ×2 (09:27→22:29)
[2016-12-09] MEDS: FAMOTIDINE 20MG TABLET PO SCH (09:27)
[2016-12-09] MEDS: ALLOPURINOL 100 MG TABLET PO SCH (09:27)
[2016-12-09] MEDS: CARVEDILOL 6.25 MG TABLET PO SCH (09:27)
[2016-12-09] MEDS: ENTRESTO 49 MG/51 MG XX SCH ×2 (09:28→21:00)
[2016-12-09] MEDS: BUDESONIDE 0.5MG/2ML NEB HHN SCH ×2 (09:59→21:17)
[2016-12-09 12:00] VITALS: BP 117/72
[2016-12-09 16:00] VITALS: BP 126/78
[2016-12-09] MEDS ORDERED: WARFARIN SODIUM 7.5MG TABLET PO NR (18:00)
[2016-12-10] VITALS: BP_SYST 124; BP_SYST 125; BP_SYST 126; BP_DIAS 76; BP_DIAS 78; BP_DIAS 86
[2016-12-10] MEDS: IPRATROPIUM/ALBUTEROL 0.5-3(2.5)MG/3ML NEB HHN SCH ×6 (01:46→21:51)
[2016-12-10 04:00] VITALS: BP 118/77
[2016-12-10] MEDS: BLOOD SUGAR DIAGNOSTIC STRIP TEST SCH ×4 (07:27→21:11)
[2016-12-10] MEDS: INSULIN LISPRO 100 UNITS/ML SUBCUT SCH ×4 (07:30→21:00)
[2016-12-10 07:34] LABS: INR 1.6; PROTHROMBIN TIME 16.4 sec (9.4-11.6)
[2016-12-10 07:56] LABS: BASOPHILS % 1.4 % (0.0-2.0); HEMATOCRIT. 28.9 % (42.0-52.0); HEMOGLOBIN. 9.4 g/dL (14.0-18.0); MEAN CORPUSCULAR HEMOGLOBIN 30.7 pg (28.0-32.0); MEAN CORPUSCULAR VOLUME 94.3 fL (80.0-94.0); MEAN PLATELET VOLUME 9.6 fl (7.4-10.4); MONOCYTES % 12.7 % (2.0-8.0); NEUTROPHILS % 55.9 % (40.0-76.0); PLATELET 104 x1000/uL (130-400); RED BLOOD CELL COUNT 3.06 mill/uL (4.7-6.1); RED CELL DISTRIBUTION WIDTH 16.8 % (11.6-14.6)
[2016-12-10 08:00] VITALS: BP_SYST 104; BP_SYST 113; BP_SYST 115; BP_DIAS 74; BP_DIAS 76; BP_DIAS 80
[2016-12-10] MEDS: ATORVASTATIN CALCIUM 20MG TABLET PO SCH (09:10)
[2016-12-10] MEDS: FAMOTIDINE 20MG TABLET PO SCH (09:11)
[2016-12-10] MEDS: FERROUS SULFATE 325MG TABLET PO SCH ×2 (09:11→18:09)
[2016-12-10] MEDS: ALLOPURINOL 100 MG TABLET PO SCH (09:11)
[2016-12-10] MEDS: SPIRONOLACTONE 25MG TABLET PO SCH (09:11)
[2016-12-10] MEDS: LISINOPRIL 20MG TABLET PO SCH ×2 (09:11→21:06)
[2016-12-10] MEDS: ENTRESTO 49 MG/51 MG XX SCH ×2 (09:13→21:12)
[2016-12-10] MEDS: BUDESONIDE 0.5MG/2ML NEB HHN SCH ×2 (09:26→21:51)
[2016-12-10 12:00] VITALS: BP 112/72
[2016-12-10 16:00] VITALS: BP 120/74
[2016-12-10] MEDS ORDERED: ENOXAPARIN 120MG/0.8ML SYR SUBCUT SCH (16:00)
[2016-12-10] MEDS ORDERED: WARFARIN SODIUM 7.5MG TABLET PO SCH (18:00)
[2016-12-10 20:00] VITALS: BP_SYST 110; BP_SYST 112; BP_SYST 116; BP_DIAS 70; BP_DIAS 72; BP_DIAS 74
[2016-12-11] VITALS: BP 127/82
[2016-12-11] MEDS: IPRATROPIUM/ALBUTEROL 0.5-3(2.5)MG/3ML NEB HHN SCH ×4 (00:27→13:05)
[2016-12-11 06:45] LABS: INR 1.6; PROTHROMBIN TIME 17.1 sec (9.4-11.6)
[2016-12-11 07:48] LABS: BASOPHILS % 0.9 % (0.0-2.0); EOSINOPHILS % 11.7 % (0.0-5.0); HEMATOCRIT. 28.9 % (42.0-52.0); HEMOGLOBIN. 9.4 g/dL (14.0-18.0); MEAN CORPUSCULAR HEMOGLOBIN 30.9 pg (28.0-32.0); MEAN CORPUSCULAR VOLUME 94.6 fL (80.0-94.0); MEAN PLATELET VOLUME 9.9 fl (7.4-10.4); MONOCYTES % 12.6 % (2.0-8.0); NEUTROPHILS % 55.8 % (40.0-76.0); PLATELET 114 x1000/uL (130-400); RED BLOOD CELL COUNT 3.05 mill/uL (4.7-6.1)
[2016-12-11 08:00] VITALS: BP 129/76
[2016-12-11] MEDS: INSULIN LISPRO 100 UNITS/ML SUBCUT SCH ×2 (08:10→13:10)
[2016-12-11] MEDS: BLOOD SUGAR DIAGNOSTIC STRIP TEST SCH ×2 (08:27→12:40)
[2016-12-11] MEDS: LISINOPRIL 20MG TABLET PO SCH (09:00)
[2016-12-11] MEDS: ENTRESTO 49 MG/51 MG XX SCH (09:00)
[2016-12-11] MEDS: SPIRONOLACTONE 25MG TABLET PO SCH (09:00)
[2016-12-11] MEDS: BUDESONIDE 0.5MG/2ML NEB HHN SCH (09:30)
[2016-12-11] MEDS: ATORVASTATIN CALCIUM 20MG TABLET PO SCH (10:55)
[2016-12-11] MEDS: ALLOPURINOL 100 MG TABLET PO SCH (10:55)
[2016-12-11] MEDS: FAMOTIDINE 20MG TABLET PO SCH (10:55)
[2016-12-11] MEDS: FERROUS SULFATE 325MG TABLET PO SCH (10:56)
[2016-12-11 12:00] VITALS: BP 116/62
[2016-12-11 14:15] VITALS: BP 106/69
[2016-12-11 15:07] VITALS: BP 106/69
== END 2016-12-11 16:00 | disposition home or self-care (01) | DRG 149 ==
LOC: ER 18:18 → 7WST 22:15 → ENRESERV 22:17 → EDBEDREQ 22:21
PROVIDERS: ADMIT Family Medicine Adult Medicine; ATTEND Family Medicine Adult Medicine
PROC: 5A1D70Z Performance of Urinary Filtration, Intermittent, Less than 6 Hours Per Day (ICD-10-PCS; principal; 2016-12-09)
DX: R42 Dizziness and giddiness (principal); I13.2 Hypertensive heart and chronic kidney disease with heart failure and with stage 5 chronic kidney disease, or end stage renal disease; E11.22 Type 2 diabetes mellitus with diabetic chronic kidney disease; I95.9 Hypotension, unspecified; I27.20 Pulmonary hypertension, unspecified; I49.5 Sick sinus syndrome; E66.01 Morbid (severe) obesity due to excess calories; I42.0 Dilated cardiomyopathy; I27.81 Cor pulmonale (chronic); G90.8 Other disorders of autonomic nervous system; N18.6 End stage renal disease; J44.9 Chronic obstructive pulmonary disease, unspecified; I25.10 Atherosclerotic heart disease of native coronary artery without angina pectoris; D63.8 Anemia in other chronic diseases classified elsewhere; I34.0 Nonrheumatic mitral (valve) insufficiency; I48.2 Chronic atrial fibrillation; I50.9 Heart failure, unspecified; M10.9 Gout, unspecified; Z79.01 Long term (current) use of anticoagulants; Z98.61 Coronary angioplasty status; Z79.84 Long term (current) use of oral hypoglycemic drugs; Z86.73 Personal history of transient ischemic attack (TIA), and cerebral infarction without residual deficits; Z99.2 Dependence on renal dialysis; Z99.81 Dependence on supplemental oxygen; Z87.891 Personal history of nicotine dependence; Z95.810 Presence of automatic (implantable) cardiac defibrillator; Z68.37 Body mass index [BMI] 37.0-37.9, adult
CPT/HCPCS: 36415; 70450; 71010; 80048; 80053; 80061; 80162; 82550; 82553; 82962; 83735; 83880; 84100; 84443; 84484; 85025; 85379; 85610; 93005; 93306; 93880; 93970; 94640; 94664; 99285; C9113; J1650; J7030; J7611; J7620; J7626